=== PATIENT | female | born 1935 | race Caucasian/White ===

== ENCOUNTER 2019-04-23 04:02 | Observation (INO) | payer MEDICARE, BC ==
[2019-04-23] MEDS ORDERED: Ondansetron 4 MG/2 ML SDV IVPUSH ONE (04:17)
[2019-04-23] MEDS ORDERED: Diphtheria/Tetanus Toxoids,Adult (Td) 0.5 ML Syringe IM ONE (04:19)
--- NOTE | 2019-04-23 04:33 | EDM.PDOC ---
ED HPI GENERAL MEDICAL PROBLEM - General Chief Complaint: General Stated Complaint: HEAD WOUND Time Seen by Provider: 04/23/19 04:11 - History of Present Illness INITIAL COMMENTS - FREE TEXT/NARRATIVE: HISTORY AND PHYSICAL: History of present illness: Patient is an 83-year-old female with extensive past medical history including coronary artery disease with stent placement who presents status post fall in which she struck her head sustaining a facial laceration patient states she recently been suffering from nausea vomiting and diarrhea and got up to go to the bathroom and felt weak and dizzy and sustained a fall there was no loss consciousness she denies neck pain denies chest or abdominal pain or trauma and states she actually feels better since arrival her tetanus status is not up-to- date. Review of systems: As per history of present illness and below otherwise all systems reviewed and negative. Past medical history: As per history of present illness and as reviewed below otherwise noncontributory. Surgical history: As per history of present illness and as reviewed below otherwise noncontributory. Social history: No reported history of drug or alcohol abuse. Family history: As per history of present illness and as reviewed below otherwise noncontributory. Physical exam: HEENT: Patient has 2 facial lacerations noted to her left forearm there are total of 4 cm in length , normocephalic, pupils reactive, negative for conjunctival pallor or scleral icterus, mucous membranes moist, throat clear, neck supple, nontender, trachea midline. Lungs: Clear to auscultation, breath sounds equal bilaterally, chest nontender. Heart: S1S2, irregular, negative for clicks, rubs, or JVD. Abdomen: Soft, nondistended, nontender. Negative for masses or hepatosplenomegaly. Negative for costovertebral tenderness. Pelvis: Stable nontender. Genitourinary: Deferred. Rectal: Deferred. Extremities: Atraumatic, negative for cords or calf pain. Neurovascular unremarkable. Neuro: Awake, alert, oriented. Cranial nerves II through XII unremarkable. Cerebellum unremarkable. Motor and sensory unremarkable throughout. Exam nonfocal. Diagnostics: CBC CMP troponin PT/INR lipase UA acute abdominal series with chest x-ray EKG CT brain Therapeutics: Saline 1 L bolus phototypesetting equipment monitor patient's wound was irrigated with copious amount 0.9 normal saline she was prepped and draped in a sterile manner Neste size of 1% lidocaine without epinephrine and closed with 5-0 absorbable suture bacitracin was applied Impression: #1 gastroenteritis #2 fall with head injury/facial lacerations #3 history of coronary artery disease #4 history of hypertension Definitive disposition and diagnosis as appropriate pending reevaluation and review of above. forehead Pain Score (Numeric/FACES): 5 - Related Data Allergies Allergy/AdvReac Type Severity Reaction Status Date / Time No Known Allergies Allergy Verified 04/23/19 04:11 Home Meds: Home Meds Lisinopril 20 mg PO BID 10/04/13 [History] Metoprolol Succinate 25 mg PO BEDTIME #30 tab.sr.24h 10/06/13 [Rx] hydroCHLOROthiazide [Hydrochlorothiazide] 25 mg PO DAILY #30 tablet 10/06/13 [Rx ] amLODIPine [Norvasc] 2.5 mg PO DAILY 10/07/15 [History] atorvaSTATin [Lipitor] 20 mg PO DAILY 04/23/19 [History] Past Medical History HEENT History: Reports: Cataract, Impaired Vision Cardiovascular History: Reports: High Cholesterol, Hypertension, Stents, Other ( See Below) Other Cardiovascular History: Heart Attack Respiratory History: Reports: None Gastrointestinal History: Reports: GERD Genitourinary History: Reports: None Other Genitourinary History: kidney surgery done (2 weeks ago)(herlinda) [employer] History: Reports: Musculoskeletal History: Reports: None Neurological History: Reports: None Psychiatric History: Reports: None Endocrine/Metabolic History: Reports: None Insulin Pump Model and Digital Developer: None Hematologic History: Reports: None Immunologic History: Reports: None Oncologic (Cancer) History: Reports: None Dermatologic History: Reports: None - Infectious Disease History Infectious Disease History: Reports: None - Past Surgical History Head Surgeries/Procedures: Reports: None HEENT Surgical History: Reports: Cataract Surgery Cardiovascular Surgical History: Reports: Coronary Artery Stent Other Female Surgeries/Procedures: Kidney Stent Social & Family History - Family History Family Medical History: Noncontributory - Tobacco Use Smoking Status *Q: Never Smoker - Caffeine Use Caffeine Use: Reports: None - Recreational Drug Use Recreational Drug Use: No ED ROS GENERAL - Review of Systems Review Of Systems: Comprehensive ROS is negative, except as noted in HPI. ED EXAM, GENERAL - Physical Exam Exam: See Below (see dictation) Course - Vital Signs Last Recorded V/S: Last Vital Signs Temp 36.9 C 04/23/19 04:05 Pulse 75 04/23/19 04:05 Resp 20 04/23/19 04:05 BP 131/80 04/23/19 04:05 Pulse Ox 93 L 04/23/19 04:05 - Orders/Labs/Meds Orders: Active Orders 24 hr Category Date Time Status EKG Documentation Completion [RC] STAT Care 04/23/19 04:17 Active Vaccines to be Administered [RC] PER UNIT ROUTINE Care 04/23/19 04:19 Active UA W/MICROSCOPIC [URIN] Stat Lab 04/23/19 04:17 Ordered Labs: Laboratory Tests 04/23/19 04/23/19 04/23/19 Range/Units 04:10 04:10 04:10 WBC 11.37 H (4.0-11.0) K/uL RBC 5.23 (4.30-5.90) M/uL Hgb 15.5 (12.0-16.0) g/dL Hct 45.9 (36.0-46.0) % MCV 87.8 (80.0-98.0) fL MCH 29.6 (27.0-32.0) pg MCHC 33.8 (31.0-37.0) g/dL RDW Std Deviation 45.2 (28.0-62.0) fl RDW Coeff of Silver 14 (11.0-15.0) % Plt Count 232 (150-400) K/uL MPV 10.60 (7.40-12.00) fL Neut % (Auto) 89.3 H (48.0-80.0) % Lymph % (Auto) 3.7 L (16.0-40.0) % [place] % (Auto) 5.6 (0.0-15.0) % Eos % (Auto) 1.3 (0.0-7.0) % Baso % (Auto) 0.1 (0.0-1.5) % Neut # (Auto) 10.2 H (1.4-5.7) K/uL Lymph # (Auto) 0.4 L (0.6-2.4) K/uL [place] # (Auto) 0.6 (0.0-0.8) K/uL Eos # (Auto) 0.2 (0.0-0.7) K/uL Baso # (Auto) 0.0 (0.0-0.1) K/uL Nucleated RBC % 0.0 /100WBC Nucleated RBCs # 0 K/uL INR 1.00 Sodium 138 (136-145) mmol/L Potassium 3.6 (3.5-5.1) mmol/L Chloride 99 (98-107) mmol/L Carbon Dioxide 27.7 (21.0-32.0) mmol/L BUN 35 H (7.0-18.0) mg/dL Creatinine 1.6 H (0.6-1.0) mg/dL Est Cr Clr Drug Dosing 19.40 mL/min Estimated GFR (MDRD) 30.6 ml/min Glucose 167 H (74-106) mg/dL POC Glucose (60-110) mg/dL Calcium 9.6 (8.5-10.1) mg/dL Total Bilirubin 1.0 (0.2-1.0) mg/dL AST 31 (15-37) IU/L ALT 29 (14-63) IU/L Alkaline Phosphatase 109 (46-116) U/L Total Protein 8.5 H (6.4-8.2) g/dL Albumin 4.6 (3.4-5.0) g/dL Globulin 3.9 (2.6-4.0) g/dL Albumin/Globulin Ratio 1.2 (0.9-1.6) Lipase 252 (73-393) U/L 04/23/19 Range/Units 04:17 WBC (4.0-11.0) K/uL RBC (4.30-5.90) M/uL Hgb (12.0-16.0) g/dL Hct (36.0-46.0) % MCV (80.0-98.0) fL MCH (27.0-32.0) pg MCHC (31.0-37.0) g/dL RDW Std Deviation (28.0-62.0) fl RDW Coeff of Silver (11.0-15.0) % Plt Count (150-400) K/uL MPV (7.40-12.00) fL Neut % (Auto) (48.0-80.0) % Lymph % (Auto) (16.0-40.0) % [place] % (Auto) (0.0-15.0) % Eos % (Auto) (0.0-7.0) % Baso % (Auto) (0.0-1.5) % Neut # (Auto) (1.4-5.7) K/uL Lymph # (Auto) (0.6-2.4) K/uL [place] # (Auto) (0.0-0.8) K/uL Eos # (Auto) (0.0-0.7) K/uL Baso # (Auto) (0.0-0.1) K/uL Nucleated RBC % /100WBC Nucleated RBCs # K/uL INR Sodium (136-145) mmol/L Potassium (3.5-5.1) mmol/L Chloride (98-107) mmol/L Carbon Dioxide (21.0-32.0) mmol/L BUN (7.0-18.0) mg/dL Creatinine (0.6-1.0) mg/dL Est Cr Clr Drug Dosing mL/min Estimated GFR (MDRD) ml/min Glucose (74-106) mg/dL POC Glucose 160 H (60-110) mg/dL Calcium (8.5-10.1) mg/dL Total Bilirubin (0.2-1.0) mg/dL AST (15-37) IU/L ALT (14-63) IU/L Alkaline Phosphatase (46-116) U/L Total Protein (6.4-8.2) g/dL Albumin (3.4-5.0) g/dL Globulin (2.6-4.0) g/dL Albumin/Globulin Ratio (0.9-1.6) Lipase (73-393) U/L Meds: Medications Discontinued Medications Generic Name Dose Route Start Last Admin Trade Name Freq PRN Reason Stop Dose Admin Sodium Chloride 1,000 mls @ 999 mls/hr 04/23/19 04:35 04/23/19 04:36 Normal Saline IV 04/23/19 05:35 999 mls/hr .Bolus ONE Administration Lidocaine HCl 5 ml 04/23/19 05:00 04/23/19 05:14 Xylocaine-Mpf 1% INJECT 04/23/19 05:01 5 ml ONETIME ONE Administration Ondansetron HCl 4 mg 04/23/19 04:17 04/23/19 04:36 Zofran IVPUSH 04/23/19 04:18 4 mg ONETIME ONE Administration Tetanus/Diphtheria Toxoids 0.5 ml 04/23/19 04:19 04/23/19 04:36 Tenivac IM 04/23/19 04:20 0.5 ml .ONCE ONE Administration Departure - Departure Time of Disposition: 05:49 Disposition: Refer to Observation Condition: Good Clinical Impression: Gastroenteritis, Coronary arteriosclerosis, CAD, Dehydration, Syncope, Head injury, Facial laceration - Discharge Information Referrals: PCP,None [Primary Care Provider] - Forms: ED Department Discharge Sepsis Event Note - Evaluation Sepsis Screening Result: No Definite Risk - Focused Exam Vital Signs: Vital Signs Temp Pulse Resp BP Pulse Ox 04/23/19 04:05 36.9 C 75 20 131/80 93 L Date Exam was Performed: 04/23/19 Time Exam was Performed: 05:49 - My Orders Last 24 Hours: My Active Orders 04/23/19 04:17 EKG Documentation Completion [RC] STAT UA W/MICROSCOPIC [URIN] Stat 04/23/19 04:19 Vaccines to be Administered [RC] PER UNIT ROUTINE - Assessment/Plan Last 24 Hours: My Active Orders 04/23/19 04:17 EKG Documentation Completion [RC] STAT UA W/MICROSCOPIC [URIN] Stat 04/23/19 04:19 Vaccines to be Administered [RC] PER UNIT ROUTINE
[2019-04-23] MEDS ORDERED: Sodium Chloride 0.9% 1,000 ML IV ONE (04:35)
[2019-04-23 04:46] LABS: CARBON DIOXIDE,CO2 27.7 mmol/L (21.0-32.0); POTASSIUM,K 3.6 mmol/L (3.5-5.1)
--- NOTE | 2019-04-23 05:29 | CR ---
Indication: Pain after fall Technique: Abdomen 2 view and chest x-ray Comparison: None Findings/Impression: Single view of the chest shows no pleural effusion or pneumothorax. No focal consolidation. Normal heart size. No dilated loops of large or small intestine. Right upper quadrant surgical clips. No abnormal calcifications. Dictated by Rober Martinez MD @ Apr 23 2019 5:19AM Signed by Dr. Rober Martinez @ Apr 23 2019 5:28AM
--- NOTE | 2019-04-23 05:34 | CT ---
INDICATION: Pain, fall and dizziness. TECHNIQUE: CT head without contrast. COMPARISON: None. FINDINGS: CSF spaces: Ventricles upper normal size. Brain parenchyma: Minimal cerebral atrophy with focal encephalomalacia in left frontal lobe consistent with an old infarction. No intracranial bleed or mass effect. Skull base and calvarium: The visualized paranasal sinuses and mastoid air cells demonstrate no acute or significant findings. The visualized orbits are grossly unremarkable. No skull fractures. Left frontal scalp hematoma. Atherosclerosis. IMPRESSION: 1. Left frontal scalp hematoma without calvarial fracture or intracranial bleed. 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 Please note that all CT scans at this facility use dose modulation, iterative reconstruction, and/or weight-based dosing when appropriate to reduce radiation dose to as low as reasonably achievable. Dictated by Rober Martinez MD @ Apr 23 2019 5:19AM Signed by Dr. Rober Martinez @ Apr 23 2019 5:32AM
[2019-04-23] MEDS: Lactated Ringers 1,000 ML IV SCH ×3 (07:58→23:19)
[2019-04-23] MEDS ORDERED: Acetaminophen 325 MG Tab PO PRN (08:24)
[2019-04-23] MEDS ORDERED: Ondansetron 4 MG/2 ML SDV IVPUSH PRN (08:24)
--- NOTE | 2019-04-23 08:31 | PCM.HP.2 ---
<Piedad Adhikari - Last Filed: 04/23/19 10:41> H&P History of Present Illness - General Date of Service: 04/23/19 Admit Problem/Dx: Admission Diagnosis/Problem Admission Diagnosis/Problem Syncope - History of Present Illness Initial Comments - Free Text/Narative: The patient is a 83 year old female with PMH of CAD with stents, HTN, hyperlipidemia who presented to the ER after fall and head trauma. Reports she ate her casserole at 4 pm then within 2 hours developed nausea, vomiting and diarrhea. Thought she had food poisoning. Was going to the bathroom when she suddenly felt very dizzy and weak. She then fell and hit the front of her head above left eye. She states she isn't sure if she passed out then fell or lost consciousness after the head trauma. She reports her son said she didn't pass out or lose consciousness. Denied chest pain, shortness of breath before incident. Denies fever/chills, black/bloody stools, or recent antibiotic use. This morning she states her head feels a little foggy, her abdomen is crampy but no longer nauseous or having diarrhea. In the ER, work up showed white count of 11.3, no anemia, elevated BUN/Cr, glucose of 160, lipase of 252. She was negative for influenza. Abdomen/chest x -ray showed no acute process. 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 She was given Zofran and IVF in the ER. PCP- Dr. Jaimes forehead Pain Score (Numeric/FACES): 5 - Related Data Allergies/Adverse Reactions: Allergies Allergy/AdvReac Type Severity Reaction Status Date / Time No Known Allergies Allergy Verified 04/23/19 11:02 Home Medications: Home Meds Metoprolol Succinate 25 mg PO BEDTIME 04/23/19 [History] atorvaSTATin [Lipitor] 20 mg PO DAILY 04/23/19 [History] estradioL [Estrace 0.01% Vaginal Crm] 1 applic VAG BEDTIME 04/23/19 [History] Acetaminophen [Tylenol] 650 mg PO Q4H PRN #10 tablet 04/24/19 [Rx] Past Medical History HEENT History: Reports: Cataract, Impaired Vision Cardiovascular History: Reports: High Cholesterol, Hypertension, Stents, Other ( See Below) Other Cardiovascular History: Heart Attack Respiratory History: Reports: None Gastrointestinal History: Reports: GERD Genitourinary History: Reports: None Other Genitourinary History: kidney surgery done (2 weeks ago)(herlinda) BUSINESS ASSOCIATE History: Reports: Musculoskeletal History: Reports: None Neurological History: Reports: None Psychiatric History: Reports: None Endocrine/Metabolic History: Reports: None Insulin Pump Model and Application Dba: None Hematologic History: Reports: None Immunologic History: Reports: None Oncologic (Cancer) History: Reports: None Dermatologic History: Reports: None - Infectious Disease History Infectious Disease History: Reports: None - Past Surgical History Head Surgeries/Procedures: Reports: None HEENT Surgical History: Reports: Cataract Surgery Cardiovascular Surgical History: Reports: Coronary Artery Stent Other Female Surgeries/Procedures: Kidney Stent Social & Family History - Family History Family Medical History: Noncontributory - Tobacco Use Smoking Status *Q: Former Smoker Years of Tobacco use: 5 Used Tobacco, but Quit: Yes Month/Year Tobacco Last Used: 40 years ago Second Hand Smoke Exposure: No - Caffeine Use Caffeine Use: Reports: None - Recreational Drug Use Recreational Drug Use: No H&P Review of Systems - Review of Systems: Review Of Systems: See Below General: Reports: No Symptoms HEENT: Reports: No Symptoms Pulmonary: Reports: No Symptoms Cardiovascular: Reports: No Symptoms Gastrointestinal: Reports: Abdominal Pain, Diarrhea, Nausea, Vomiting. Denies: Black Stool, Bloody Stool Genitourinary: Reports: No Symptoms Musculoskeletal: Reports: No Symptoms Skin: Reports: No Symptoms Psychiatric: Reports: No Symptoms Neurological: Reports: Syncope Hematologic/Lymphatic: Reports: No Symptoms Immunologic: Reports: No Symptoms Exam - Exam Exam: See Below - Vital Signs Vital Signs: Last Vital Signs Temp 99.2 F 04/23/19 06:46 Pulse 74 04/23/19 06:46 Resp 18 04/23/19 06:46 BP 148/66 H 04/23/19 06:46 Pulse Ox 95 04/23/19 06:46 Weight: 56.699 kg - Exam Quality Assessment: No: Supplemental Oxygen General: Alert, Oriented, Cooperative HEENT: Conjunctiva Clear, EOMI, Mucosa Moist & [place], Posterior Pharynx Clear, Pupils Equal, Pupils Reactive, Other (hematoma above left eye) Lungs: Clear to Auscultation, Normal Respiratory Effort Cardiovascular: Regular Rate, Regular Rhythm GI/Abdominal Exam: Normal Bowel Sounds, Soft, Tender. No: Guarding, Rigid, Rebound Extremities: No Pedal Edema Skin: Warm, Dry, Intact Neuro Extensive - Mental Status: Alert, Oriented x3 Psychiatric: Alert, Normal Affect, Normal Mood - Patient Data Lab Results Last 24 hrs: Laboratory Results - last 24 hr 04/23/19 04/23/19 04/23/19 Range/Units 04:10 04:10 04:10 WBC 11.37 H (4.0-11.0) K/uL RBC 5.23 (4.30-5.90) M/uL Hgb 15.5 (12.0-16.0) g/dL Hct 45.9 (36.0-46.0) % MCV 87.8 (80.0-98.0) fL MCH 29.6 (27.0-32.0) pg MCHC 33.8 (31.0-37.0) g/dL RDW Std Deviation 45.2 (28.0-62.0) fl RDW Coeff of Silver 14 (11.0-15.0) % Plt Count 232 (150-400) K/uL MPV 10.60 (7.40-12.00) fL Neut % (Auto) 89.3 H (48.0-80.0) % Lymph % (Auto) 3.7 L (16.0-40.0) % [place] % (Auto) 5.6 (0.0-15.0) % Eos % (Auto) 1.3 (0.0-7.0) % Baso % (Auto) 0.1 (0.0-1.5) % Neut # (Auto) 10.2 H (1.4-5.7) K/uL Lymph # (Auto) 0.4 L (0.6-2.4) K/uL [place] # (Auto) 0.6 (0.0-0.8) K/uL Eos # (Auto) 0.2 (0.0-0.7) K/uL Baso # (Auto) 0.0 (0.0-0.1) K/uL Nucleated RBC % 0.0 /100WBC Nucleated RBCs # 0 K/uL INR 1.00 Sodium 138 (136-145) mmol/L Potassium 3.6 (3.5-5.1) mmol/L Chloride 99 (98-107) mmol/L Carbon Dioxide 27.7 (21.0-32.0) mmol/L BUN 35 H (7.0-18.0) mg/dL Creatinine 1.6 H (0.6-1.0) mg/dL Est Cr Clr Drug Dosing 19.40 mL/min Estimated GFR (MDRD) 30.6 ml/min Glucose 167 H (74-106) mg/dL POC Glucose (60-110) mg/dL Calcium 9.6 (8.5-10.1) mg/dL Total Bilirubin 1.0 (0.2-1.0) mg/dL AST 31 (15-37) IU/L ALT 29 (14-63) IU/L Alkaline Phosphatase 109 (46-116) U/L Total Protein 8.5 H (6.4-8.2) g/dL Albumin 4.6 (3.4-5.0) g/dL Globulin 3.9 (2.6-4.0) g/dL Albumin/Globulin Ratio 1.2 (0.9-1.6) Lipase 252 (73-393) U/L 04/23/19 Range/Units 04:17 WBC (4.0-11.0) K/uL RBC (4.30-5.90) M/uL Hgb (12.0-16.0) g/dL Hct (36.0-46.0) % MCV (80.0-98.0) fL MCH (27.0-32.0) pg MCHC (31.0-37.0) g/dL RDW Std Deviation (28.0-62.0) fl RDW Coeff of Silver (11.0-15.0) % Plt Count (150-400) K/uL MPV (7.40-12.00) fL Neut % (Auto) (48.0-80.0) % Lymph % (Auto) (16.0-40.0) % [place] % (Auto) (0.0-15.0) % Eos % (Auto) (0.0-7.0) % Baso % (Auto) (0.0-1.5) % Neut # (Auto) (1.4-5.7) K/uL Lymph # (Auto) (0.6-2.4) K/uL [place] # (Auto) (0.0-0.8) K/uL Eos # (Auto) (0.0-0.7) K/uL Baso # (Auto) (0.0-0.1) K/uL Nucleated RBC % /100WBC Nucleated RBCs # K/uL INR Sodium (136-145) mmol/L Potassium (3.5-5.1) mmol/L Chloride (98-107) mmol/L Carbon Dioxide (21.0-32.0) mmol/L BUN (7.0-18.0) mg/dL Creatinine (0.6-1.0) mg/dL Est Cr Clr Drug Dosing mL/min Estimated GFR (MDRD) ml/min Glucose (74-106) mg/dL POC Glucose 160 H (60-110) mg/dL Calcium (8.5-10.1) mg/dL Total Bilirubin (0.2-1.0) mg/dL AST (15-37) IU/L ALT (14-63) IU/L Alkaline Phosphatase (46-116) U/L Total Protein (6.4-8.2) g/dL Albumin (3.4-5.0) g/dL Globulin (2.6-4.0) g/dL Albumin/Globulin Ratio (0.9-1.6) Lipase (73-393) U/L Result Diagrams: 04/23/19 04:10 04/23/19 04:10 Rogerio Results Last 24 hrs: Microbiology 04/23/19 04:18 Influenza Type A Antigen Screen - Final Nasopharyngeal Swab NEGATIVE INFLUENZA A VIRUS AG REFERENCE RANGE: NEGATIVE Influenza Type B Antigen Screen - Final NEGATIVE INFLUENZA B VIRUS AG REFERENCE RANGE: NEGATIVE Sepsis Event Note - Evaluation Sepsis Screening Result: No Definite Risk - Focused Exam Vital Signs: Vital Signs Temp Pulse Resp BP Pulse Ox 04/23/19 06:46 99.2 F 74 18 148/66 H 95 04/23/19 06:16 98 F 72 18 156/52 H 94 L 04/23/19 05:00 70 18 153/87 H 94 L 04/23/19 04:05 98.5 F 75 20 131/80 93 L Date Exam was Performed: 04/23/19 Time Exam was Performed: 10:41 Problem List Initiated/Reviewed/Updated: Yes Orders Last 24hrs: Active Orders 24 hr Category Date Time Status Patient Status [ADT] Stat ADT 04/23/19 05:53 Active Intake and Output [RC] ASDIRECTED Care 04/23/19 08:22 Ordered Neuro Check [RC] Q4HR Care 04/23/19 08:00 Active Telemetry Monitoring [Cardiac Monitoring] [RC] . Care 04/23/19 06:12 Active DIRECTED Vaccines to be Administered [RC] PER UNIT ROUTINE Care 04/23/19 04:19 Active Vital Signs [RC] Q4H Care 04/23/19 07:11 Active Heart Healthy Diet [DIET] Diet 04/23/19 Breakfast Active C DIFFICILE AG/TOXIN W/REFLEX [RM] Routine Lab 04/23/19 07:46 Ordered UA W/MICROSCOPIC [URIN] Stat Lab 04/23/19 04:17 Ordered Acetaminophen [Tylenol] Med 04/23/19 08:24 Ordered 650 mg PO Q4H PRN Lactated Ringers [Ringers, Lactated] 1,000 ml Med 04/23/19 07:15 Active IV ASDIRECTED Ondansetron [Zofran] Med 04/23/19 08:24 Ordered 4 mg IVPUSH Q4H PRN Resuscitation Status Routine Resus Stat 04/23/19 08:22 Ordered Medication Orders Acetaminophen (Tylenol) 650 mg PO Q4H PRN PRN Reason: Pain/Fever Lactated Ringer's (Ringers, Lactated) 1,000 mls @ 150 mls/hr IV ASDIRECTED [facility] Last Admin: 04/23/19 07:58 Dose: 150 mls/hr Ondansetron HCl (Zofran) 4 mg IVPUSH Q4H PRN PRN Reason: Nausea/Vomiting Assessment/Plan Comment:: 1. Admit for observation 2. Code status- DNR/DNI 3. Vitals per routine 4. I/Os per routine 5. Diet- clear liquid 6. DVT prophylaxis with heparin 7. Possible syncope with fall and head trauma- neuro checks, monitor on telemetry, CT head negative acute intracranial process. 8. Vomiting and Diarrhea- clear liquid diet as tolerated, IVF, Cdiff/Stool studies and UA pending. 9.CKD- monitor 10. CAD, HTN, hyperlipidemia- will resume metoprolol and see how her blood pressure runs, continue statin. <Sarina Scott - Last Filed: 04/24/19 13:54> H&P History of Present Illness - General Admit Problem/Dx: Admission Diagnosis/Problem Admission Diagnosis/Problem Syncope Exam - Vital Signs Vital Signs: Last Vital Signs Temp 36.4 C 04/24/19 12:00 Pulse 82 04/24/19 12:00 Resp 16 04/24/19 12:00 BP 170/91 H 04/24/19 12:00 Pulse Ox 99 04/24/19 12:00 Orthostatic Blood Pressure [ 110/56 Standing] Orthostatic Blood Pressure [ 104/57 Sitting] - Patient Data Lab Results Last 24 hrs: Laboratory Results - last 24 hr 04/23/19 04/23/19 04/24/19 Range/Units 04:10 18:35 06:00 WBC (4.0-11.0) K/uL RBC (4.30-5.90) M/uL Hgb (12.0-16.0) g/dL Hct (36.0-46.0) % MCV (80.0-98.0) fL MCH (27.0-32.0) pg MCHC (31.0-37.0) g/dL RDW Std Deviation (28.0-62.0) fl RDW Coeff of Silver (11.0-15.0) % Plt Count (150-400) K/uL MPV (7.40-12.00) fL Neut % (Auto) (48.0-80.0) % Lymph % (Auto) (16.0-40.0) % Cris[place] % (Auto) (0.0-15.0) % Eos % (Auto) (0.0-7.0) % Baso % (Auto) (0.0-1.5) % Neut # (Auto) (1.4-5.7) K/uL Lymph # (Auto) (0.6-2.4) K/uL [place] # (Auto) (0.0-0.8) K/uL Eos # (Auto) (0.0-0.7) K/uL Baso # (Auto) (0.0-0.1) K/uL Nucleated RBC % /100WBC Nucleated RBCs # K/uL Sodium (136-145) mmol/L Potassium (3.5-5.1) mmol/L Chloride (98-107) mmol/L Carbon Dioxide (21.0-32.0) mmol/L BUN (7.0-18.0) mg/dL Creatinine (0.6-1.0) mg/dL Est Cr Clr Drug Dosing mL/min Estimated GFR (MDRD) ml/min Glucose (74-106) mg/dL Calcium (8.5-10.1) mg/dL Phosphorus 2.4 L (2.6-4.7) mg/dL Magnesium 1.8 2.2 (1.8-2.4) mg/dL Urine Color YELLOW Urine Appearance CLEAR Urine pH 5.5 (5.0-8.0) Ur Specific [place] 1.020 (1.001-1.035) Urine Protein NEGATIVE (NEGATIVE) mg/dL Urine Glucose (UA) NEGATIVE (NEGATIVE) mg/dL Urine Ketones NEGATIVE (NEGATIVE) mg/dL Urine Occult Blood TRACE-INTACT H (NEGATIVE) Urine Nitrite NEGATIVE (NEGATIVE) Urine Bilirubin NEGATIVE (NEGATIVE) Urine Urobilinogen 0.2 (<2.0) EU/dL Ur Leukocyte Esterase NEGATIVE (NEGATIVE) Urine RBC 0-1 (0-2/HPF) Urine WBC 0-1 (0-5/HPF) Ur Epithelial Cells RARE (NONE-FEW) Urine Bacteria RARE (NEGATIVE) 04/24/19 04/24/19 Range/Units 06:20 06:20 WBC 5.71 (4.0-11.0) K/uL RBC 4.07 L (4.30-5.90) M/uL Hgb 11.8 L (12.0-16.0) g/dL Hct 35.7 L (36.0-46.0) % MCV 87.7 (80.0-98.0) fL MCH 29.0 (27.0-32.0) pg MCHC 33.1 (31.0-37.0) g/dL RDW Std Deviation 45.6 (28.0-62.0) fl RDW Coeff of Silver 14 (11.0-15.0) % Plt Count 182 (150-400) K/uL MPV 11.00 (7.40-12.00) fL Neut % (Auto) 70.1 (48.0-80.0) % Lymph % (Auto) 18.9 (16.0-40.0) % Cris[place] % (Auto) 7.4 (0.0-15.0) % Eos % (Auto) 3.2 (0.0-7.0) % Baso % (Auto) 0.4 (0.0-1.5) % Neut # (Auto) 4.0 (1.4-5.7) K/uL Lymph # (Auto) 1.1 (0.6-2.4) K/uL [place] # (Auto) 0.4 (0.0-0.8) K/uL Eos # (Auto) 0.2 (0.0-0.7) K/uL Baso # (Auto) 0.0 (0.0-0.1) K/uL Nucleated RBC % 0.0 /100WBC Nucleated RBCs # 0 K/uL Sodium 139 (136-145) mmol/L Potassium 3.4 L (3.5-5.1) mmol/L Chloride 103 (98-107) mmol/L Carbon Dioxide 30.8 (21.0-32.0) mmol/L BUN 24 H (7.0-18.0) mg/dL Creatinine 1.3 H (0.6-1.0) mg/dL Est Cr Clr Drug Dosing 23.87 mL/min Estimated GFR (MDRD) 38.9 ml/min Glucose 91 (74-106) mg/dL Calcium 8.3 L (8.5-10.1) mg/dL Phosphorus (2.6-4.7) mg/dL Magnesium (1.8-2.4) mg/dL Urine Color Urine Appearance Urine pH (5.0-8.0) Ur Specific [place] (1.001-1.035) Urine Protein (NEGATIVE) mg/dL Urine Glucose (UA) (NEGATIVE) mg/dL Urine Ketones (NEGATIVE) mg/dL Urine Occult Blood (NEGATIVE) Urine Nitrite (NEGATIVE) Urine Bilirubin (NEGATIVE) Urine Urobilinogen (<2.0) EU/dL Ur Leukocyte Esterase (NEGATIVE) Urine RBC (0-2/HPF) Urine WBC (0-5/HPF) Ur Epithelial Cells (NONE-FEW) Urine Bacteria (NEGATIVE) Result Diagrams: 04/24/19 06:20 04/24/19 06:20 Sepsis Event Note - Focused Exam Vital Signs: Vital Signs Temp Pulse Resp BP Pulse Ox 04/24/19 12:00 36.4 C 82 16 170/91 H 99 04/24/19 08:00 36.5 C 59 L 15 120/62 98 04/24/19 04:00 36.2 C 55 L 16 135/61 95 Date Exam was Performed: 04/24/19 Time Exam was Performed: 13:54 - Problem List (1) Coronary arteriosclerosis, CAD SNOMED Code(s): 75666389 ICD Code: I25.10 - ATHSCL HEART DISEASE OF [place] CORONARY ARTERY W/O ANG PCTRS Status: Acute Current Visit: Yes (2) Dehydration SNOMED Code(s): 55360092 ICD Code: E86.0 - DEHYDRATION Status: Acute Current Visit: Yes (3) Facial laceration SNOMED Code(s): 760736799 ICD Code: S01.81XA - LACERATION W/O FOREIGN BODY OF OTH PART OF HEAD, INIT ENCNTR Status: Acute Current Visit: Yes (4) Gastroenteritis SNOMED Code(s): 27355682 ICD Code: K52.9 - NONINFECTIVE GASTROENTERITIS AND COLITIS, UNSPECIFIED Status: Acute Current Visit: Yes (5) Syncope SNOMED Code(s): 258752051 ICD Code: R55 - SYNCOPE AND COLLAPSE Status: Acute Current Visit: Yes Orders Last 24hrs: Active Orders 24 hr Category Date Time Status Regular Diet [DIET] Diet 04/24/19 Lunch Active Echo Comp wo Cont [US] Routine Exams 04/23/19 23:10 Ordered Metoprolol Succinate [Toprol XL] Med 04/23/19 21:00 Active 25 mg PO BEDTIME atorvaSTATin [Lipitor] Med 04/24/19 09:00 Active 20 mg PO DAILY Medication Orders Acetaminophen (Tylenol) 650 mg PO Q4H PRN PRN Reason: Pain/Fever Atorvastatin Calcium (Lipitor) 20 mg PO DAILY [facility] Last Admin: 04/24/19 08:50 Dose: 20 mg Heparin Sodium (Porcine) (Heparin Sodium) 5,000 units SUBCUT BID [facility] Last Admin: 04/24/19 08:52 Dose: 5,000 units Admin: 04/23/19 21:19 Dose: 5,000 units Admin: 04/23/19 11:23 Dose: 5,000 units Lactated Ringer's (Ringers, Lactated) 1,000 mls @ 150 mls/hr IV ASDIRECTED [facility] Last Admin: 04/24/19 08:54 Dose: 150 mls/hr Infusion: 04/24/19 06:00 Dose: 150 mls/hr Admin: 04/23/19 23:19 Dose: 150 mls/hr Infusion: 04/23/19 22:22 Dose: 150 mls/hr Admin: 04/23/19 15:41 Dose: 150 mls/hr Infusion: 04/23/19 14:39 Dose: 150 mls/hr Admin: 04/23/19 07:58 Dose: 150 mls/hr Metoprolol Succinate (Toprol Xl) 25 mg PO BEDTIME [facility] Last Admin: 04/23/19 21:22 Dose: Ondansetron HCl (Zofran) 4 mg IVPUSH Q4H PRN PRN Reason: Nausea/Vomiting Assessment/Plan Comment:: I performed a history and physical exam of the patient and discussed management with resident. I have reviewed the residents note and agree with documented findings and plan unless otherwise specified in my note.
[2019-04-23] MEDS: Heparin Sodium 5,000 Units/ML Vial SUBCUT SCH ×2 (11:23→21:19)
[2019-04-23] MEDS ORDERED: Metoprolol Succinate 25 MG Tab.ER PO SCH (21:00)
[2019-04-23] MEDS ORDERED: Magnesium Sulfate/Water 2 GM in Premix Bag 1 BAG IV ONE (23:07)
[2019-04-24 06:57] LABS: CARBON DIOXIDE,CO2 30.8 mmol/L (21.0-32.0); POTASSIUM,K 3.4 mmol/L (3.5-5.1)
[2019-04-24] MEDS: Heparin Sodium 5,000 Units/ML Vial SUBCUT SCH (08:52)
[2019-04-24] MEDS: Lactated Ringers 1,000 ML IV SCH (08:54)
[2019-04-24] MEDS ORDERED: atorvaSTATin 20 MG Tab PO SCH (09:00)
[2019-04-24] MEDS ORDERED: Potassium Chloride 10% 20 MEQ/15 ML Soln 30 ML UD Cup PO ONE (09:46)
[2019-04-24] MEDS ORDERED: Phosphorus #1 250 MG Tab PO ONE (12:27)
--- NOTE | 2019-04-24 12:27 | PCM.DCSUM1 ---
Discharge Summary - Hospital Course HPI Initial Comments: Patient is an 83-year-old female with extensive past medical history including coronary artery disease with stent placement who presents status post fall in which she struck her head sustaining a facial laceration patient states she recently been suffering from nausea vomiting and diarrhea and got up to go to the bathroom and felt weak and dizzy and sustained a fall there was no loss consciousness she denies neck pain denies chest or abdominal pain or trauma and states she actually feels better since arrival . She was admitted for further management. no c/o chest pain, Overnight her BP was soft so she received IVF hydration, BP improved, Patients Antihypertensive meds were held , electrolytes were repleted, upon dc only metoprolol was restated, Patients dizzienss was likely sec to taking too many antihypertensives and volume depletion due to diarrhea. Diarrhea improved, BP was stable, and patient was asked to fu with her PCP and check her BP in 2 days to make sure its stable. Patient is medically stable for dc and recommended to fu with PCP upon dc. - Discharge Data Discharge Date: 04/24/19 Discharge Disposition: Home, Self-Care 01 Condition: Fair - Referral to Home Health Primary Care Physician: PCP None - Discharge Diagnosis/Problem(s) (1) Coronary arteriosclerosis, CAD SNOMED Code(s): 27665727 ICD Code: I25.10 - ATHSCL HEART DISEASE OF [place] CORONARY ARTERY W/O ANG PCTRS Status: Acute Current Visit: Yes (2) Dehydration SNOMED Code(s): 39880686 ICD Code: E86.0 - DEHYDRATION Status: Acute Current Visit: Yes (3) Facial laceration SNOMED Code(s): 428540772 ICD Code: S01.81XA - LACERATION W/O FOREIGN BODY OF OTH PART OF HEAD, INIT ENCNTR Status: Acute Current Visit: Yes (4) Gastroenteritis SNOMED Code(s): 06212937 ICD Code: K52.9 - NONINFECTIVE GASTROENTERITIS AND COLITIS, UNSPECIFIED Status: Acute Current Visit: Yes (5) Syncope SNOMED Code(s): 381767388 ICD Code: R55 - SYNCOPE AND COLLAPSE Status: Acute Current Visit: Yes - Discharge Plan *PRESCRIPTION DRUG MONITORING PROGRAM REVIEWED*: No *COPY OF PRESCRIPTION DRUG MONITORING REPORT IN PATIENT BETH: No Prescriptions/Med Rec: Acetaminophen [Tylenol] 650 mg PO Q4H PRN #10 tablet PRN Reason: Pain/Fever Home Medications: Home Meds Metoprolol Succinate 25 mg PO BEDTIME 04/23/19 [History] atorvaSTATin [Lipitor] 20 mg PO DAILY 04/23/19 [History] estradioL [Estrace 0.01% Vaginal Crm] 1 applic VAG BEDTIME 04/23/19 [History] Acetaminophen [Tylenol] 650 mg PO Q4H PRN #10 tablet 04/24/19 [Rx] Referrals: Surendra Jaimes MD [Physician] - 05/06/19 10:30 am (Arrive 15 minutes early with a photo ID and insurance card. ) - Discharge Summary/Plan Comment DC Time >30 min.: No - Patient Data Vitals - Most Recent: Last Vital Signs Temp 36.5 C 04/24/19 08:00 Pulse 59 L 04/24/19 08:00 Resp 15 04/24/19 08:00 BP 120/62 04/24/19 08:00 Pulse Ox 98 04/24/19 08:00 Orthostatic Blood Pressure [ 110/56 Standing] Orthostatic Blood Pressure [ 104/57 Sitting] Weight - Most Recent: 56.699 kg I&O - Last 24 hours: Intake & Output 04/23/19 04/24/19 04/24/19 22:59 06:59 14:59 Intake Total 1529 2150 Output Total 100 500 Balance 1429 1650 Lab Results - Last 24 hrs: Laboratory Results - last 24 hr 04/23/19 04/23/19 04/24/19 Range/Units 04:10 18:35 06:00 WBC (4.0-11.0) K/uL RBC (4.30-5.90) M/uL Hgb (12.0-16.0) g/dL Hct (36.0-46.0) % MCV (80.0-98.0) fL MCH (27.0-32.0) pg MCHC (31.0-37.0) g/dL RDW Std Deviation (28.0-62.0) fl RDW Coeff of Silver (11.0-15.0) % Plt Count (150-400) K/uL MPV (7.40-12.00) fL Neut % (Auto) (48.0-80.0) % Lymph % (Auto) (16.0-40.0) % [place] % (Auto) (0.0-15.0) % Eos % (Auto) (0.0-7.0) % Baso % (Auto) (0.0-1.5) % Neut # (Auto) (1.4-5.7) K/uL Lymph # (Auto) (0.6-2.4) K/uL [place] # (Auto) (0.0-0.8) K/uL Eos # (Auto) (0.0-0.7) K/uL Baso # (Auto) (0.0-0.1) K/uL Nucleated RBC % /100WBC Nucleated RBCs # K/uL Sodium (136-145) mmol/L Potassium (3.5-5.1) mmol/L Chloride (98-107) mmol/L Carbon Dioxide (21.0-32.0) mmol/L BUN (7.0-18.0) mg/dL Creatinine (0.6-1.0) mg/dL Est Cr Clr Drug Dosing mL/min Estimated GFR (MDRD) ml/min Glucose (74-106) mg/dL Calcium (8.5-10.1) mg/dL Phosphorus 2.4 L (2.6-4.7) mg/dL Magnesium 1.8 2.2 (1.8-2.4) mg/dL Urine Color YELLOW Urine Appearance CLEAR Urine pH 5.5 (5.0-8.0) Ur Specific [place] 1.020 (1.001-1.035) Urine Protein NEGATIVE (NEGATIVE) mg/dL Urine Glucose (UA) NEGATIVE (NEGATIVE) mg/dL Urine Ketones NEGATIVE (NEGATIVE) mg/dL Urine Occult Blood TRACE-INTACT H (NEGATIVE) Urine Nitrite NEGATIVE (NEGATIVE) Urine Bilirubin NEGATIVE (NEGATIVE) Urine Urobilinogen 0.2 (<2.0) EU/dL Ur Leukocyte Esterase NEGATIVE (NEGATIVE) Urine RBC 0-1 (0-2/HPF) Urine WBC 0-1 (0-5/HPF) Ur Epithelial Cells RARE (NONE-FEW) Urine Bacteria RARE (NEGATIVE) 04/24/19 04/24/19 Range/Units 06:20 06:20 WBC 5.71 (4.0-11.0) K/uL RBC 4.07 L (4.30-5.90) M/uL Hgb 11.8 L (12.0-16.0) g/dL Hct 35.7 L (36.0-46.0) % MCV 87.7 (80.0-98.0) fL MCH 29.0 (27.0-32.0) pg MCHC 33.1 (31.0-37.0) g/dL RDW Std Deviation 45.6 (28.0-62.0) fl RDW Coeff of Silver 14 (11.0-15.0) % Plt Count 182 (150-400) K/uL MPV 11.00 (7.40-12.00) fL Neut % (Auto) 70.1 (48.0-80.0) % Lymph % (Auto) 18.9 (16.0-40.0) % [place] % (Auto) 7.4 (0.0-15.0) % Eos % (Auto) 3.2 (0.0-7.0) % Baso % (Auto) 0.4 (0.0-1.5) % Neut # (Auto) 4.0 (1.4-5.7) K/uL Lymph # (Auto) 1.1 (0.6-2.4) K/uL [place] # (Auto) 0.4 (0.0-0.8) K/uL Eos # (Auto) 0.2 (0.0-0.7) K/uL Baso # (Auto) 0.0 (0.0-0.1) K/uL Nucleated RBC % 0.0 /100WBC Nucleated RBCs # 0 K/uL Sodium 139 (136-145) mmol/L Potassium 3.4 L (3.5-5.1) mmol/L Chloride 103 (98-107) mmol/L Carbon Dioxide 30.8 (21.0-32.0) mmol/L BUN 24 H (7.0-18.0) mg/dL Creatinine 1.3 H (0.6-1.0) mg/dL Est Cr Clr Drug Dosing 23.87 mL/min Estimated GFR (MDRD) 38.9 ml/min Glucose 91 (74-106) mg/dL Calcium 8.3 L (8.5-10.1) mg/dL Phosphorus (2.6-4.7) mg/dL Magnesium (1.8-2.4) mg/dL Urine Color Urine Appearance Urine pH (5.0-8.0) Ur Specific [place] (1.001-1.035) Urine Protein (NEGATIVE) mg/dL Urine Glucose (UA) (NEGATIVE) mg/dL Urine Ketones (NEGATIVE) mg/dL Urine Occult Blood (NEGATIVE) Urine Nitrite (NEGATIVE) Urine Bilirubin (NEGATIVE) Urine Urobilinogen (<2.0) EU/dL Ur Leukocyte Esterase (NEGATIVE) Urine RBC (0-2/HPF) Urine WBC (0-5/HPF) Ur Epithelial Cells (NONE-FEW) Urine Bacteria (NEGATIVE) Med Orders - Current: Current Medications Acetaminophen (Tylenol) 650 mg PO Q4H PRN PRN Reason: Pain/Fever Atorvastatin Calcium (Lipitor) 20 mg PO DAILY [facility] Last Admin: 04/24/19 08:50 Dose: 20 mg Heparin Sodium (Porcine) (Heparin Sodium) 5,000 units SUBCUT BID [facility] Last Admin: 04/24/19 08:52 Dose: 5,000 units Lactated Ringer's (Ringers, Lactated) 1,000 mls @ 150 mls/hr IV ASDIRECTED [facility] Last Admin: 04/24/19 08:54 Dose: 150 mls/hr Metoprolol Succinate (Toprol Xl) 25 mg PO BEDTIME [facility] Last Admin: 04/23/19 21:22 Dose: Not Given Ondansetron HCl (Zofran) 4 mg IVPUSH Q4H PRN PRN Reason: Nausea/Vomiting Discontinued Medications Sodium Chloride (Normal Saline) 1,000 mls @ 999 mls/hr IV .Bolus ONE Stop: 04/23/19 05:35 Last Admin: 04/23/19 04:36 Dose: 999 mls/hr Magnesium Sulfate 2 gm/ Premix 50 mls @ 50 mls/hr IV ONETIME ONE Stop: 04/24/19 00:06 Last Admin: 04/23/19 23:31 Dose: 50 mls/hr Lidocaine HCl (Xylocaine-Mpf 1%) 5 ml INJECT ONETIME ONE Stop: 04/23/19 05:01 Last Admin: 04/23/19 05:14 Dose: 5 ml Ondansetron HCl (Zofran) 4 mg IVPUSH ONETIME ONE Stop: 04/23/19 04:18 Last Admin: 04/23/19 04:36 Dose: 4 mg Potassium Chloride (Potassium Chloride) 40 meq PO ONETIME ONE Stop: 04/24/19 09:47 Last Admin: 04/24/19 10:35 Dose: 40 meq Tetanus/Diphtheria Toxoids (Tenivac) 0.5 ml IM .ONCE ONE Stop: 04/23/19 04:20 Last Admin: 04/23/19 04:36 Dose: 0.5 ml
[2019-04-24 13:28] VITALS: BP 170/91; PULSE 82
== END 2019-04-24 16:00 | disposition home or self-care (01) ==
LOC: MW.ED 04:02 → MW.MS 05:53
PROVIDERS: ADMIT Student in an Organized Health Care Education/Training Program; ATTEND Student in an Organized Health Care Education/Training Program
DX: R55 Syncope and collapse (principal); E86.0 Dehydration; K52.9 Noninfective gastroenteritis and colitis, unspecified; S01.81XA Laceration without foreign body of other part of head, initial encounter; E78.5 Hyperlipidemia, unspecified; E78.00 Pure hypercholesterolemia, unspecified; K21.9 Gastro-esophageal reflux disease without esophagitis; I12.9 Hypertensive chronic kidney disease with stage 1 through stage 4 chronic kidney disease, or unspecified chronic kidney disease; N18.9 Chronic kidney disease, unspecified; I25.10 Atherosclerotic heart disease of native coronary artery without angina pectoris; Z95.5 Presence of coronary angioplasty implant and graft; Z87.891 Personal history of nicotine dependence; Z79.899 Other long term (current) drug therapy; W18.39XA Other fall on same level, initial encounter
CPT/HCPCS: 36415; 70450; 74022; 80048; 80053; 81001; 82962; 83690; 83735; 84100; 85025; 85610; 87804; 90714; 93005; A9270; J1644; J2001; J2405; J3475; J7030; J7120; 12013; 90471; 96361; 96374; 99283; 99285-25

== ENCOUNTER 2020-04-27 10:14 | Observation (INO) | payer MEDICARE, OTHER ==
--- NOTE | 2020-04-27 10:23 | EDM.PDOC ---
ED HPI GENERAL MEDICAL PROBLEM - General Chief Complaint: Gastrointestinal Problem Stated Complaint: UNK Time Seen by Provider: 04/27/20 10:22 Source of Information: Reports: Patient History Limitations: Reports: No Limitations - History of Present Illness INITIAL COMMENTS - FREE TEXT/NARRATIVE: HISTORY AND PHYSICAL: History of present illness: Patient is an 84-year-old female who presents to the emergency room by EMS after a syncopal event. Patient states she was using the bathroom yesterday and "I guess I fell". She was found on the ground by her son. Fall was unwitnessed, patient does not recall the incident itself. The son states he heard her fall and went upstairs to find her unconscious on the floor, this lasted about a minute. She states she felt generally unwell as she had her second round of the [place] COVID-19 vaccine yesterday. She has had nausea, vomiting, generalized fatigue and malaise since yesterday evening. Today the son states he witnessed seizure like activity that lasted a few seconds along with a syncopal event that lasted less than 30 seconds. That is when he decided to call EMS for assistance. EMS arrived and she was resting in bed, had emesis on herself. EMS states she was complaining of nausea, vomiting and generalized lower abdominal pain. Upon arrival the patient is alert, oriented and states she just generally feels unwell. Currently denies any abdominal pain. EMS had given 4 mg of Zofran and patient states she is starting to feel better with this. Patient denies any fever, chills, headache, change in vision, chest pain, back pain, shortness of breath, cough, or hemoptysis. Denies any diarrhea, constipation or dysuria. Has not noted any blood in urine or stool. Patient has been eating and drinking appropriately. Family states that a year ago she had a similar instance where she had "flulike symptoms" and had similar seizure-like activity. Family reports it took 1 to 2 days for her to bounce back and feel better. Past medical history of coronary artery disease with stents, ID, hypertension, and "kidney surgery". Review of systems: As per history of present illness and below otherwise all systems reviewed and negative. Past medical history: As per history of present illness and as reviewed below otherwise noncontributory. Surgical history: As per history of present illness and as reviewed below otherwise noncontributory. Social history: See social history for further information Family history: As per history of present illness and as reviewed below otherwise noncontributory. Physical exam: General: Well developed and well nourished 84-year-old female. Alert and orientated x 3. Nontoxic in appearance and in no acute distress. Vital signs are stable and have been reviewed by me. Nursing notes were reviewed. HEENT: Atraumatic, normocephalic, pupils equal and reactive bilaterally, negative for conjunctival pallor or scleral icterus, mucous membranes moist, TMs normal bilaterally, throat clear, neck supple, nontender, trachea midline. No drooling or trismus noted. No meningeal signs. No hot potato voice noted. Lungs: Clear to auscultation bilaterally. No wheezes, rales, or rhonchi. Chest nontender. Normal work of breathing, no accessory muscles used. Heart: S1S2, irregular rate and rhythm without overt murmur, gallops, or rubs. No JVD. No peripheral edema Abdomen: Soft, nondistended, nontender. Normoactive bowel sounds. Negative for masses or costovertebral tenderness. C-spine/Back: No pinpoint vertebral tenderness upon palpation. No crepitus, step-offs or obvious deformities. Patient is ambulatory into the emergency room without difficulty or deficit. Able to rock back on heels and walk on toes. Denies any urinary or fecal incontinence. Denies any numbness, tingling or saddle paresthesia. No concerns of serious infection, fracture or cord compression, or cauda equina syndrome. Deep tendon reflexes brisk bilaterally. Skin: Intact, warm, dry. No lesions or rashes noted. Hematologic: No petechiae or purpra. Mucosa appropriate color and normal nail bed color and refill. Extremities: Atraumatic, moves all extremities per self without difficulty or deficits, negative for cords or calf pain. Neurovascular unremarkable. Neuro: Awake, alert, oriented. Cranial nerves II through XII unremarkable. Cerebellum unremarkable. Motor and sensory unremarkable throughout. Exam nonfocal. Psychiatric: Mood and affect are appropriate. Normal thought process. Answering questions appropriately. Notes: *This patient was seen and evaluated during the 2019 SARS-CoV-2 novel coronavirus pandemic period. Community viral transmission is ongoing at time of this encounter and the emergency department is operating under pandemic response procedures. Patient received Zofran via EMS upon arrival. Patient is neurologically intact, she's alert and orientated. Due to the syncopy, LOC and seizure like activity - will do a full work-up with patient is agreeable with. VSS. I have spoke with family of likelyhood of patient being admitted at the least. Lab work shows the patient is mildly dehydrated. Negative troponin. CT is negative for acute traumatic abnormality. Small focus of encephalomalacia in the anterolateral left frontal lobe. Nonspecific cerebral white matter disease which is most likely due to aging/chronic microvascular ischemia. I have talked with the patient family about today's findings, in addition to providing specific details for plan of care. Reassessment at the time of disposition demonstrates that the patient is in no acute distress. Vital signs have been stable while here. Due to patient recent syncopal events and generally feeling unwell keep we will keep her for observation. Dr. Kevin, hospitalist on-call was consulted and he is agreeable to keeping her for further care and management Diagnostics: CBC, CMP, UA, Troponin, EKG, CXR, Head CT UA Therapeutics: IV fluids Impression: Syncope Seizure like activity New onset of atrial fibrillation Fatigue post COVID vaccine Plan: Observation with telemetry Definitive disposition and diagnosis as appropriate pending reevaluation and review of above. rlq Pain Score (Numeric/FACES): 4 - Related Data Allergies Allergy/AdvReac Type Severity Reaction Status Date / Time No Known Allergies Allergy Verified 04/27/20 10:30 Home Meds: Home Meds Metoprolol Succinate 25 mg PO BEDTIME 04/23/19 [History] atorvaSTATin [Lipitor] 20 mg PO DAILY 04/23/19 [History] Acetaminophen [Tylenol] 650 mg PO Q4H PRN #10 tablet 04/24/19 [Rx] Aspirin [Aspirin EC] 81 mg PO DAILY 04/27/20 [History] hydroCHLOROthiazide [Hydrochlorothiazide] 25 mg PO DAILY 04/27/20 [History] lisinopriL [Lisinopril] 20 mg PO DAILY 04/27/20 [History] Past Medical History HEENT History: Reports: Cataract, Impaired Vision Cardiovascular History: Reports: High Cholesterol, Hypertension, Stents, Other (See Below) Other Cardiovascular History: Heart Attack Respiratory History: Reports: None Gastrointestinal History: Reports: GERD Genitourinary History: Reports: None Other Genitourinary History: kidney surgery done (2 weeks ago)(herlinda) 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: Musculoskeletal History: Reports: None Neurological History: Reports: None Psychiatric History: Reports: None Endocrine/Metabolic History: Reports: None Insulin Pump Model and Esl Instructor: None Hematologic History: Reports: None Immunologic History: Reports: None Oncologic (Cancer) History: Reports: None Dermatologic History: Reports: None - Infectious Disease History Infectious Disease History: Reports: None - Past Surgical History Head Surgeries/Procedures: Reports: None HEENT Surgical History: Reports: Cataract Surgery Cardiovascular Surgical History: Reports: Coronary Artery Stent Other Female Surgeries/Procedures: Kidney Stent Social & Family History - Family History Family Medical History: No Pertinent Family History - Caffeine Use Caffeine Use: Reports: None ED ROS GENERAL - Review of Systems Review Of Systems: Comprehensive ROS is negative, except as noted in HPI. ED EXAM, GI/ABD - Physical Exam Exam: See Below (See dictation) Course - Vital Signs Last Recorded V/S: Last Vital Signs Temp 97.6 F 04/27/20 10:24 Pulse 66 04/27/20 10:24 Resp 18 04/27/20 10:24 BP 148/54 H 04/27/20 10:24 Pulse Ox 97 04/27/20 10:24 - Orders/Labs/Meds Orders: Active Orders 24 hr Category Date Time Status Admission Status [Patient Status] [ADT] Stat ADT 04/27/20 11:57 Ordered EKG Documentation Completion [RC] STAT Care 04/27/20 10:24 Active UA RFX LESLIE AND CULT IF INDIC [URIN] Stat Lab 04/27/20 10:55 Ordered Sodium Chloride 0.9% [Normal Saline] 1,000 ml Med 04/27/20 10:24 Active IV STAT Sodium Chloride 0.9% [Saline Flush] Med 04/27/20 10:24 Active 10 ml FLUSH ASDIRECTED PRN Sodium Chloride 0.9% [Saline Flush] Med 04/27/20 10:24 Active 2.5 ml FLUSH ASDIRECTED PRN Saline Lock Insert [OM.PC] Stat Oth 04/27/20 10:24 Ordered Medication Orders Sodium Chloride (Normal Saline) 1,000 mls @ 100 mls/hr IV STAT ONE Stop: 04/27/20 20:23 Last Admin: 04/27/20 10:44 Dose: 100 mls/hr Documented by: TRISH Sodium Chloride (Saline Flush) 10 ml FLUSH ASDIRECTED PRN PRN Reason: Keep Vein Open Last Admin: 04/27/20 10:45 Dose: 10 ml Documented by: TRISH Sodium Chloride (Saline Flush) 2.5 ml FLUSH ASDIRECTED PRN PRN Reason: Keep Vein Open Last Admin: 04/27/20 10:45 Dose: 2.5 ml Documented by: TRISH Labs: Laboratory Tests 04/27/20 04/27/20 04/27/20 Range/Units 10:37 10:37 10:50 WBC 7.88 (4.0-11.0) K/uL RBC 5.01 (4.30-5.90) M/uL Hgb 14.6 (12.0-16.0) g/dL Hct 43.5 (36.0-46.0) % MCV 86.8 (80.0-98.0) fL MCH 29.1 (27.0-32.0) pg MCHC 33.6 (31.0-37.0) g/dL RDW Std Deviation 46.6 (28.0-62.0) fl RDW Coeff of Silver 15 (11.0-15.0) % Plt Count 172 (150-400) K/uL MPV 10.90 (7.40-12.00) fL Neut % (Auto) 90.9 H (48.0-80.0) % Lymph % (Auto) 5.6 L (16.0-40.0) % Alpine % (Auto) 3.2 (0.0-15.0) % Eos % (Auto) 0.0 (0.0-7.0) % Baso % (Auto) 0.3 (0.0-1.5) % Neut # (Auto) 7.2 H (1.4-5.7) K/uL Lymph # (Auto) 0.4 L (0.6-2.4) K/uL Alpine # (Auto) 0.3 (0.0-0.8) K/uL Eos # (Auto) 0.0 (0.0-0.7) K/uL Baso # (Auto) 0.0 (0.0-0.1) K/uL Nucleated RBC % 0.0 /100WBC Nucleated RBCs # 0 K/uL Sodium 138 (136-145) mmol/L Potassium 3.2 L (3.5-5.1) mmol/L Chloride 99 (98-107) mmol/L Carbon Dioxide 27.2 (21.0-32.0) mmol/L BUN 24 H (7.0-18.0) mg/dL Creatinine 1.3 H (0.6-1.0) mg/dL Est Cr Clr Drug Dosing 23.44 mL/min Estimated GFR (MDRD) 38.8 ml/min Glucose 148 H (74-106) mg/dL Calcium 8.7 (8.5-10.1) mg/dL Total Bilirubin 1.5 H (0.2-1.0) mg/dL AST 24 (15-37) IU/L ALT 23 (14-63) IU/L Alkaline Phosphatase 98 (46-116) U/L Creatine Kinase 95 (26-308) U/L Troponin I < 0.050 (0.000-0.056) ng/mL Total Protein 7.1 (6.4-8.2) g/dL Albumin 3.8 (3.4-5.0) g/dL Globulin 3.3 (2.6-4.0) g/dL Albumin/Globulin Ratio 1.2 (0.9-1.6) SARS-CoV-2 RNA (MELISSA) NEGATIVE (NEGATIVE) Meds: Medications Generic Name Dose Route Start Last Admin Trade Name Freq PRN Reason Stop Dose Admin Sodium Chloride 1,000 mls @ 100 mls/hr 04/27/20 10:24 04/27/20 10:44 Normal Saline IV 04/27/20 20:23 100 mls/hr STAT ONE Administration Sodium Chloride 10 ml 04/27/20 10:24 04/27/20 10:45 Saline Flush FLUSH 10 ml ASDIRECTED PRN Administration Keep Vein Open Sodium Chloride 2.5 ml 04/27/20 10:24 04/27/20 10:45 Saline Flush FLUSH 2.5 ml ASDIRECTED PRN Administration Keep Vein Open Departure - Departure Time of Disposition: 12:03 Disposition: Refer to Observation Clinical Impression: New onset a-fib, Fatigue after COVID-19 vaccination, Seizure-like activity Fall Qualifiers: Encounter type: initial encounter Qualified Code(s): W19.XXXA - Unspecified fall, initial encounter Syncope Qualifiers: Syncope type: unspecified Qualified Code(s): R55 - Syncope and collapse - Discharge Information Referrals: Surendra Jaimes MD [Primary Care Provider] - Forms: ED Department Discharge Sepsis Event Note (ED) - Focused Exam Vital Signs: Vital Signs Temp Pulse Resp BP Pulse Ox 04/27/20 10:24 97.6 F 66 18 148/54 H 97 - My Orders Last 24 Hours: My Active Orders 04/27/20 10:24 EKG Documentation Completion [RC] STAT Sodium Chloride 0.9% [Normal Saline] 1,000 ml IV STAT Sodium Chloride 0.9% [Saline Flush] 10 ml FLUSH ASDIRECTED PRN Sodium Chloride 0.9% [Saline Flush] 2.5 ml FLUSH ASDIRECTED PRN Saline Lock Insert [OM.PC] Stat 04/27/20 10:55 UA RFX LESLIE AND CULT IF INDIC [URIN] Stat 04/27/20 11:57 Admission Status [Patient Status] [ADT] Stat - Assessment/Plan Last 24 Hours: My Active Orders 04/27/20 10:24 EKG Documentation Completion [RC] STAT Sodium Chloride 0.9% [Normal Saline] 1,000 ml IV STAT Sodium Chloride 0.9% [Saline Flush] 10 ml FLUSH ASDIRECTED PRN Sodium Chloride 0.9% [Saline Flush] 2.5 ml FLUSH ASDIRECTED PRN Saline Lock Insert [OM.PC] Stat 04/27/20 10:55 UA RFX LESLIE AND CULT IF INDIC [URIN] Stat 04/27/20 11:57 Admission Status [Patient Status] [ADT] Stat
[2020-04-27] MEDS ORDERED: Sodium Chloride 0.9% 1,000 ML IV ONE (10:24)
[2020-04-27] MEDS ORDERED: Sodium Chloride 0.9% 10 ML Syringe FLUSH PRN (10:24)
[2020-04-27] MEDS ORDERED: Sodium Chloride 0.9% 2.5 ML Syringe FLUSH PRN ×2 (10:24→12:44)
--- NOTE | 2020-04-27 10:59 | PCM.EKG ---
#1 Interpretation EKG Date: 04/27/20 Time: 10:33 Rhythm: A-Fib Rate (Beats/Min): 68 Jarratt: Normal P-Wave: Present QRS: Normal ST-T: Normal QT: Normal Comparison: Change From Previous EKG (T wave inversions in II,III, avf unchanged. However, no hx of A fib) EKG Interpretation Comments: Atrial fibrillation
[2020-04-27 11:11] LABS: BLOOD UREA NITROGEN,BUN 24 mg/dL (7.0-18.0); CARBON DIOXIDE,CO2 27.2 mmol/L (21.0-32.0); CHLORIDE,CL 99 mmol/L (98-107); GLUCOSE RANDOM 148 mg/dL (74-106); POTASSIUM,K 3.2 mmol/L (3.5-5.1); SODIUM,NA 138 mmol/L (136-145)
--- NOTE | 2020-04-27 11:25 | CR ---
Indication: Syncope Comparison: Single view chest October 11, 2013 Technique: Single AP view chest Findings: There is hyperinflation and chronic interstitial change. There is no focal consolidation, effusion, or pneumothorax. Stable cardiac silhouette prominence. The bony thorax is grossly intact. Impression: No acute cardiopulmonary abnormality. Dictated by Young Jones MD @ Apr 27 2020 11:22AM Signed by Dr. Young Jones @ Apr 27 2020 11:23AM
--- NOTE | 2020-04-27 11:43 | CT ---
INDICATION: Syncope. Fell. Nausea and vomiting. TECHNIQUE: Scanning of the head was performed without IV contrast material. Coronal and sagittal reconstructions were obtained. COMPARISON: Head CT of 04/23/2019. FINDINGS: No acute hemorrhage or positive mass effect is demonstrated. No calvarial or obvious facial fracture is identified. The visualized paranasal and mastoid sinuses are clear. The ventricles and other subarachnoid spaces are within normal limits for the patient`s age. A small focus of encephalomalacia is again demonstrated in the anterolateral left frontal lobe just anterior to the sylvian fissure. There is nonspecific decreased attenuation in the cerebral white matter which is most likely due to aging/chronic microvascular ischemic disease. IMPRESSION: 1. Negative for acute traumatic abnormality. 2. Small focus of encephalomalacia in the anterolateral left frontal lobe. 3. Nonspecific cerebral white matter disease which is most likely due to aging/chronic microvascular ischemia. Please note that all CT scans at this facility use dose modulation, iterative reconstruction, and/or weight-based dosing when appropriate to reduce radiation dose to as low as reasonably achievable. Dictated by Demetrius Negrete MD @ Apr 27 2020 11:38AM Signed by Dr. Demetrius Negrete @ Apr 27 2020 11:42AM
[2020-04-27] MEDS ORDERED: Ondansetron 4 MG/2 ML SDV IVPUSH ONE (12:34)
[2020-04-27] MEDS ORDERED: Ondansetron 4 MG/2 ML SDV IVPUSH PRN (12:44)
[2020-04-27] MEDS ORDERED: Acetaminophen 325 MG Tab PO PRN (12:44)
[2020-04-27] MEDS ORDERED: Sodium Chloride 0.9% with KCl 1,000 ML IV ONE (13:12)
[2020-04-27] MEDS ORDERED: Magnesium Sulfate/Water 2 GM/50 ML BAG IV ONE (13:13)
--- NOTE | 2020-04-27 14:23 | PCM.HP.2 ---
H&P History of Present Illness - General Date of Service: 04/27/20 Admit Problem/Dx: Admission Diagnosis/Problem Admission Diagnosis/Problem Syncope Source of Information: Patient, Family (daughter Thuy at bedside) - History of Present Illness Initial Comments - Free Text/Narative: This 84-year-old female with past medical history of CAD with stenting, HTN, HLD, and GA presented to the ER with complaints of syncopal episodes with nausea and vomiting. She reports yesterday afternoon she received the second dose of her oderna Covid vaccine. She reports that she felt well until the evening when she had gotten up to the bathroom and had passed out while sitting on the toilet. She has no recollection of what happened with the first episode of passing out. She denies any chest pain shortness of breath lightheadedness or dizziness prior to syncopal episode. She reports that when she got up to the bathroom she knew she did not feel well and was feeling significantly nauseated with mild dizziness. Her son heard her fall and aided her back to the bed. Per reports she was unconscious for a a minute and then came before he assisted her back to bed. At this time she did also pass out a little bit again but then woke up very quickly. She had significant nausea overnight and had another episode of a syncopal episode with some tremulous or seizure-like activity in front of her daughter this morning. This is what provoked them to seek evaluation. Upon arrival to the ER she is feeling very nauseated she was given Zofran which significantly helped her nausea and has been feeling better since. She again denies any chest pain shortness of breath palpitations. She denies any lightheadedness or dizziness at the moment. She reports she did not hit her head when she passed out. She denies any fevers chills black or bloody stools and no focal neurological deficits. She reports again nausea and vomiting. She denies any tobacco use, alcohol use or recreational drug use. Her daughter reports that similar symptoms occurred last year when she had flulike symptoms. She had this tremulous seizure-like activity and passed out. She was treated with Zofran and some fluids and she felt much improved the next day. Upon review of the chart it appears that she had very similar pre sentation. EKG at that time again was showing possible a flutter. In the ER no leukocytosis noted her white count was 7.88 hemoglobin 14.6 hematocrit 43.5. Potassium 3.2 BUN 24 creatinine 1.3 which is around her baseline. Magnesium 1.7 bilirubin 1.5 other LFTs normal. Troponin negative. Covid swab negative. Heart rate in the ER 66 blood pressure 148/54. She was given normal saline 1 L. EKG revealed possible atrial fibrillation a flutter. Heart rate remained controlled. There is no history of A. fib in the past. She will be admitted secondary to syncopal episode along with nausea and vomiting and new onset A. fib. PCP Dr. Jaimes rlq Pain Score (Numeric/FACES): 4 - Related Data Allergies/Adverse Reactions: Allergies Allergy/AdvReac Type Severity Reaction Status Date / Time No Known Allergies Allergy Verified 04/27/20 14:37 Home Medications: Home Meds Metoprolol Succinate 25 mg PO BEDTIME 04/23/19 [History] atorvaSTATin [Lipitor] 20 mg PO DAILY 04/23/19 [History] Acetaminophen [Tylenol] 650 mg PO Q4H PRN #10 tablet 04/24/19 [Rx] Aspirin [Aspirin EC] 81 mg PO DAILY 04/27/20 [History] hydroCHLOROthiazide [Hydrochlorothiazide] 25 mg PO DAILY 04/27/20 [History] lisinopriL [Lisinopril] 20 mg PO DAILY 04/27/20 [History] Past Medical History HEENT History: Reports: Cataract, Impaired Vision Cardiovascular History: Reports: CAD, High Cholesterol, Hypertension, GA, Stents Respiratory History: Reports: None. 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 Hematologic History: Reports: None Immunologic History: Reports: None Oncologic (Cancer) History: Reports: None Dermatologic History: Reports: None - Infectious Disease History Infectious Disease History: Reports: None - Past Surgical History Head Surgeries/Procedures: Reports: None HEENT Surgical History: Reports: Cataract Surgery Cardiovascular Surgical History: Reports: Coronary Artery Stent Female Surgical History: Reports: Other (See Below) Other Female Surgeries/Procedures: Kidney Stent Social & Family History - Family History Family Medical History: No Pertinent Family History - Tobacco Use Tobacco Use Status *Q: Never Tobacco User - Caffeine Use Caffeine Use: Reports: None - Alcohol Use Alcohol Use History: No - Recreational Drug Use Recreational Drug Use: No - Living Situation & Occupation Living situation: Reports: with Family Occupation: Retired H&P Review of Systems - Review of Systems: Review Of Systems: See Below General: Reports: Malaise, Weakness, Fatigue. Denies: Fever, Chills HEENT: Reports: Vertigo (Mild dizziness earlier). Denies: Headaches, Sinus Congestion Pulmonary: Reports: No Symptoms. Denies: Shortness of Breath Cardiovascular: Reports: Syncope. Denies: Chest Pain, Dyspnea on Exertion, Edema, Lightheadedness, Blood Pressure Problem Gastrointestinal: Reports: Nausea (Feeling much better after Zofran in the ER), Vomiting. Denies: Abdominal Pain, Black Stool, Constipation Genitourinary: Reports: No Symptoms. Denies: Dysuria, Frequency, Burning Musculoskeletal: Reports: No Symptoms Skin: Reports: No Symptoms Psychiatric: Reports: No Symptoms. Denies: Confusion Neurological: Reports: Syncope Hematologic/Lymphatic: Reports: No Symptoms Immunologic: Reports: No Symptoms Exam - Exam Exam: See Below - Vital Signs Vital Signs: Last Vital Signs Temp 98.2 F 04/27/20 13:34 Pulse 63 04/27/20 13:34 Resp 16 04/27/20 13:34 BP 136/72 04/27/20 13:34 Pulse Ox 97 04/27/20 13:34 Weight: 54.431 kg - Exam General: Alert, Oriented, Cooperative HEENT: Conjunctiva Clear, Posterior Pharynx Clear. No: Mucosa Moist & [place] (Dry) Neck: Supple, Trachea Midline Lungs: Clear to Auscultation, Normal Respiratory Effort Cardiovascular: Regular Rate, Irregular Rhythm. No: Systolic Murmur GI/Abdominal Exam: Normal Bowel Sounds, Soft, Non-Tender, No Organomegaly, No Distention Back Exam: Normal Inspection, Full Range of Motion Extremities: Normal Inspection, Normal Range of Motion, Non-Tender, No Pedal Edema Neuro Extensive - Mental Status: Alert, Oriented x3 Neuro Extensive - Motor, Sensory, Reflexes: CN II-XII Intact Psychiatric: Alert, Normal Affect, Normal Mood - Patient Data Lab Results Last 24 hrs: Laboratory Results - last 24 hr 04/27/20 04/27/20 04/27/20 Range/Units 10:37 10:37 10:37 WBC 7.88 (4.0-11.0) K/uL RBC 5.01 (4.30-5.90) M/uL Hgb 14.6 (12.0-16.0) g/dL Hct 43.5 (36.0-46.0) % MCV 86.8 (80.0-98.0) fL MCH 29.1 (27.0-32.0) pg MCHC 33.6 (31.0-37.0) g/dL RDW Std Deviation 46.6 (28.0-62.0) fl RDW Coeff of Silver 15 (11.0-15.0) % Plt Count 172 (150-400) K/uL MPV 10.90 (7.40-12.00) fL Neut % (Auto) 90.9 H (48.0-80.0) % Lymph % (Auto) 5.6 L (16.0-40.0) % [place] % (Auto) 3.2 (0.0-15.0) % Eos % (Auto) 0.0 (0.0-7.0) % Baso % (Auto) 0.3 (0.0-1.5) % Neut # (Auto) 7.2 H (1.4-5.7) K/uL Lymph # (Auto) 0.4 L (0.6-2.4) K/uL [place] # (Auto) 0.3 (0.0-0.8) K/uL Eos # (Auto) 0.0 (0.0-0.7) K/uL Baso # (Auto) 0.0 (0.0-0.1) K/uL Nucleated RBC % 0.0 /100WBC Nucleated RBCs # 0 K/uL Sodium 138 (136-145) mmol/L Potassium 3.2 L (3.5-5.1) mmol/L Chloride 99 (98-107) mmol/L Carbon Dioxide 27.2 (21.0-32.0) mmol/L BUN 24 H (7.0-18.0) mg/dL Creatinine 1.3 H (0.6-1.0) mg/dL Est Cr Clr Drug Dosing 23.44 mL/min Estimated GFR (MDRD) 38.8 ml/min Glucose 148 H (74-106) mg/dL Calcium 8.7 (8.5-10.1) mg/dL Magnesium 1.7 L (1.8-2.4) mg/dL Total Bilirubin 1.5 H (0.2-1.0) mg/dL AST 24 (15-37) IU/L ALT 23 (14-63) IU/L Alkaline Phosphatase 98 (46-116) U/L Creatine Kinase 95 (26-308) U/L Troponin I < 0.050 (0.000-0.056) ng/mL Total Protein 7.1 (6.4-8.2) g/dL Albumin 3.8 (3.4-5.0) g/dL Globulin 3.3 (2.6-4.0) g/dL Albumin/Globulin Ratio 1.2 (0.9-1.6) Urine Color Urine Appearance Urine pH (5.0-8.0) Ur Specific [place] (1.001-1.035) Urine Protein (NEGATIVE) mg/dL Urine Glucose (UA) (NEGATIVE) mg/dL Urine Ketones (NEGATIVE) mg/dL Urine Occult Blood (NEGATIVE) Urine Nitrite (NEGATIVE) Urine Bilirubin (NEGATIVE) Urine Urobilinogen (<2.0) EU/dL Ur Leukocyte Esterase (NEGATIVE) SARS-CoV-2 RNA (MELISSA) (NEGATIVE) 04/27/20 04/27/20 Range/Units 10:50 13:40 WBC (4.0-11.0) K/uL RBC (4.30-5.90) M/uL Hgb (12.0-16.0) g/dL Hct (36.0-46.0) % MCV (80.0-98.0) fL MCH (27.0-32.0) pg MCHC (31.0-37.0) g/dL RDW Std Deviation (28.0-62.0) fl RDW Coeff of Silver (11.0-15.0) % Plt Count (150-400) K/uL MPV (7.40-12.00) fL Neut % (Auto) (48.0-80.0) % Lymph % (Auto) (16.0-40.0) % [place] % (Auto) (0.0-15.0) % Eos % (Auto) (0.0-7.0) % Baso % (Auto) (0.0-1.5) % Neut # (Auto) (1.4-5.7) K/uL Lymph # (Auto) (0.6-2.4) K/uL [place] # (Auto) (0.0-0.8) K/uL Eos # (Auto) (0.0-0.7) K/uL Baso # (Auto) (0.0-0.1) K/uL Nucleated RBC % /100WBC Nucleated RBCs # K/uL Sodium (136-145) mmol/L Potassium (3.5-5.1) mmol/L Chloride (98-107) mmol/L Carbon Dioxide (21.0-32.0) mmol/L BUN (7.0-18.0) mg/dL Creatinine (0.6-1.0) mg/dL Est Cr Clr Drug Dosing mL/min Estimated GFR (MDRD) ml/min Glucose (74-106) mg/dL Calcium (8.5-10.1) mg/dL Magnesium (1.8-2.4) mg/dL Total Bilirubin (0.2-1.0) mg/dL AST (15-37) IU/L ALT (14-63) IU/L Alkaline Phosphatase (46-116) U/L Creatine Kinase (26-308) U/L Troponin I (0.000-0.056) ng/mL Total Protein (6.4-8.2) g/dL Albumin (3.4-5.0) g/dL Globulin (2.6-4.0) g/dL Albumin/Globulin Ratio (0.9-1.6) Urine Color YELLOW Urine Appearance CLEAR Urine pH 6.0 (5.0-8.0) Ur Specific [place] 1.025 (1.001-1.035) Urine Protein NEGATIVE (NEGATIVE) mg/dL Urine Glucose (UA) NEGATIVE (NEGATIVE) mg/dL Urine Ketones 15 H (NEGATIVE) mg/dL Urine Occult Blood TRACE-INTACT H (NEGATIVE) Urine Nitrite NEGATIVE (NEGATIVE) Urine Bilirubin NEGATIVE (NEGATIVE) Urine Urobilinogen 0.2 (<2.0) EU/dL Ur Leukocyte Esterase NEGATIVE (NEGATIVE) SARS-CoV-2 RNA (MELISSA) NEGATIVE (NEGATIVE) Result Diagrams: 04/27/20 10:37 04/27/20 10:37 Sepsis Event Note - Evaluation Sepsis Screening Result: No Definite Risk - Focused Exam Vital Signs: Vital Signs Temp Pulse Resp BP Pulse Ox 04/27/20 13:34 98.2 F 63 16 136/72 97 04/27/20 12:58 70 124/62 98 04/27/20 12:29 76 132/52 L 98 04/27/20 11:28 59 L 123/58 L 97 04/27/20 10:59 64 140/50 L 98 04/27/20 10:29 67 164/69 H 96 04/27/20 10:24 97.6 F 66 18 148/54 H 97 - Problem List (1) Nausea & vomiting SNOMED Code(s): 42470820 ICD Code: R11.2 - NAUSEA WITH VOMITING, UNSPECIFIED Status: Acute Current Visit: Yes (2) Fall SNOMED Code(s): 8902271, 144509271 ICD Code: W19.XXXA - UNSPECIFIED FALL, INITIAL ENCOUNTER Status: Acute Current Visit: Yes Qualifiers: Encounter type: initial encounter Qualified Code(s): W19.XXXA - Unspecified fall, initial encounter (3) Fatigue after COVID-19 vaccination SNOMED Code(s): 83360395 ICD Code: R53.83 - OTHER FATIGUE; T50.B95A - ADVERSE EFFECT OF OTHER VIRAL VACCINES, INITIAL ENCOUNTER Status: Acute Current Visit: Yes (4) New onset a-fib SNOMED Code(s): 12507319 ICD Code: I48.91 - UNSPECIFIED ATRIAL FIBRILLATION Status: Acute Current Visit: Yes (5) Seizure-like activity SNOMED Code(s): 955104790 ICD Code: R56.9 - UNSPECIFIED CONVULSIONS Status: Acute Current Visit: Yes (6) Syncope SNOMED Code(s): 473288146 ICD Code: R55 - SYNCOPE AND COLLAPSE Status: Acute Current Visit: Yes Qualifiers: Syncope type: unspecified Qualified Code(s): R55 - Syncope and collapse (7) HLD (hyperlipidemia) SNOMED Code(s): 55830266 ICD Code: E78.5 - HYPERLIPIDEMIA, UNSPECIFIED Status: Chronic Current Visit: Yes (8) History of myocardial infarction SNOMED Code(s): 066045639 ICD Code: I25.2 - OLD MYOCARDIAL INFARCTION Status: Chronic Current Visit: Yes (9) History of coronary artery stent placement SNOMED Code(s): 663940035, 379488511 ICD Code: Z95.5 - PRESENCE OF CORONARY ANGIOPLASTY IMPLANT AND GRAFT Status: Chronic Current Visit: Yes (10) Coronary arteriosclerosis, CAD SNOMED Code(s): 32589929 ICD Code: I25.10 - ATHSCL HEART DISEASE OF [place] CORONARY ARTERY W/O ANG PCTRS Status: Chronic Current Visit: No (11) HTN, Essential hypertension SNOMED Code(s): 74592512 ICD Code: I10 - ESSENTIAL (PRIMARY) HYPERTENSION Status: Chronic Current Visit: No (12) Hypokalemia SNOMED Code(s): 45178111 ICD Code: E87.6 - HYPOKALEMIA Status: Acute Current Visit: Yes (13) Hypomagnesemia SNOMED Code(s): 658235860 ICD Code: E83.42 - HYPOMAGNESEMIA Status: Acute Current Visit: Yes Problem List Initiated/Reviewed/Updated: Yes Orders Last 24hrs: Active Orders 24 hr Category Date Time Status Admission Status [Patient Status] [ADT] Stat ADT 04/27/20 11:57 Active EKG 12 Lead [EKG Documentation Completion] [RC] STAT Care 04/27/20 13:21 Active Intake and Output [RC] QSHIFT Care 04/27/20 12:44 Active Orthostatic Vital Signs [RC] ONETIME Care 04/27/20 12:41 Active Oxygen Therapy [RC] PRN Care 04/27/20 12:44 Active Telemetry Monitoring [Cardiac Monitoring] [RC] Q8H Care 04/27/20 12:39 Active Up With Assistance [RC] ASDIRECTED Care 04/27/20 12:44 Active VTE/DVT Education [RC] PER UNIT ROUTINE Care 04/27/20 12:44 Active Vital Signs [RC] Q4H Care 04/27/20 12:44 Active CBC WITH AUTO DIFF [HEME] AM Lab 04/28/20 05:11 Ordered COMPREHENSIVE METABOLIC PN,CMP [CHEM] AM Lab 04/28/20 05:11 Ordered MAGNESIUM [CHEM] AM Lab 04/28/20 05:11 Ordered TROPONIN I [CHEM] Q6H Lab 04/27/20 16:30 Ordered TROPONIN I [CHEM] Q6H Lab 04/27/20 22:30 Ordered UA RFX LESLIE AND CULT IF INDIC [URIN] Stat Lab 04/27/20 10:55 Ordered Acetaminophen [TylenoL] Med 04/27/20 12:44 Active 650 mg PO Q4H PRN Aspirin [Halfprin] Med 04/28/20 09:00 Active 81 mg PO DAILY Metoprolol Succinate [Toprol XL] Med 04/27/20 21:00 Active 25 mg PO BEDTIME Ondansetron [Zofran] Med 04/27/20 12:44 Active 4 mg IVPUSH Q4H PRN Sodium Chloride 0.9% [Normal Saline] 1,000 ml Med 04/27/20 10:24 Active IV STAT Sodium Chloride 0.9% [Saline Flush] Med 04/27/20 12:44 Active 2.5 ml FLUSH ASDIRECTED PRN Sodium Chloride 0.9% with KCl [Normal Saline with 40 Med 04/27/20 13:12 Active mEq KCl] 1,000 ml IV ONETIME atorvaSTATin [Lipitor] Med 04/27/20 21:00 Active 20 mg PO BEDTIME Saline Lock Insert [OM.PC] Routine Oth 04/27/20 12:44 Ordered Seizure Precautions [OM.PC] Routine Oth 04/27/20 13:10 Ordered Medication Orders Acetaminophen (Tylenol) 650 mg PO Q4H PRN PRN Reason: Pain (Mild 1-3)/fever Aspirin (Halfprin) 81 mg PO DAILY IJEOMA Atorvastatin Calcium (Lipitor) 20 mg PO BEDTIME IJEOMA Sodium Chloride (Normal Saline) 1,000 mls @ 100 mls/hr IV STAT ONE Stop: 04/27/20 20:23 Last Infusion: 04/27/20 10:44 Dose: 999 mls/hr Documented by: Admin: 04/27/20 10:44 Dose: 100 mls/hr Documented by: TRISH Potassium Chloride/Sodium Chloride (Normal Saline With 40 Meq Kcl) 1,000 mls @ 125 mls/hr IV ONETIME ONE Stop: 04/27/20 21:11 Last Admin: 04/27/20 13:51 Dose: 125 mls/hr Documented by: YAMILKA Metoprolol Succinate (Toprol Xl) 25 mg PO BEDTIME IJEOMA Ondansetron HCl (Zofran) 4 mg IVPUSH Q4H PRN PRN Reason: Nausea Sodium Chloride (Saline Flush) 2.5 ml FLUSH ASDIRECTED PRN PRN Reason: Keep Vein Open Last Admin: 04/27/20 13:50 Dose: 2.5 ml Documented by: YAMILKA Assessment/Plan Comment:: This 84-year-old female admitted with nausea vomiting and syncopal episode also found to have new onset A. fib. 1. Syncopal episode -Could be secondary to dehydration and recent Covid vaccination. -We will give 1 more liter of fluid with 40 mEq potassium -Check orthostatic blood pressures -Trend troponins x2, patient has been chest pain-free -Monitor on telemetry -We will need Zio patch upon discharge to evaluate A. fib -We will keep on seizure precautions though seizure is low on differential. Patient was aware of tremors happening when they were happening. 2. Nausea vomiting -Much improved with Zofran in the ER -Heart healthy diet -Supportive care -Zofran as needed 3. New onset atrial fibrillation -Replace magnesium and potassium to keep magnesium above 2 and potassium above 4 -Continue metoprolol -Monitor on telemetry -[id number] score is 2 will need to have a discussion with family and patient regarding anticoagulation. -Continue aspirin for now 4. CAD/HTN/HLD -Continue metoprolol and statin along with aspirin -Hold HCTZ and lisinopril due to some dehydration today. VTE prophylaxis: SCDs and ambulation CODE STATUS: DNR/DNI Dispo: 1 to [address] Daley at bedside was updated and agrees with treatment plan listed above.
[2020-04-27] MEDS ORDERED: atorvaSTATin 20 MG Tab PO SCH (21:00)
[2020-04-27] MEDS ORDERED: Metoprolol Succinate 25 MG Tab.ER PO SCH (21:00)
[2020-04-28 06:08] LABS: CARBON DIOXIDE,CO2 26.9 mmol/L (21.0-32.0); POTASSIUM,K 3.6 mmol/L (3.5-5.1)
[2020-04-28] MEDS ORDERED: Lisinopril 10 MG Tab PO SCH (09:00)
[2020-04-28] MEDS ORDERED: Hydrochlorothiazide 25 MG Tab PO SCH (09:00)
[2020-04-28] MEDS ORDERED: Aspirin 81 MG Tab.EC PO SCH (09:00)
[2020-04-28] MEDS ORDERED: Potassium Chloride 20 MEQ Tab.ER PO ONE (09:00)
--- NOTE | 2020-04-28 09:52 | PCM.DCSUM1 ---
Discharge Summary - Hospital Course Brief History: This 84-year-old female with past medical history of CAD with stenting, HTN, HLD, and OR presented to the ER with complaints of syncopal episodes with nausea and vomiting. She reports yesterday afternoon she received the second dose of her oderna Covid vaccine. She reports that she felt well until the evening when she had gotten up to the bathroom and had passed out while sitting on the toilet. She has no recollection of what happened with the first episode of passing out. She denies any chest pain shortness of breath lightheadedness or dizziness prior to syncopal episode. She reports that when she got up to the bathroom she knew she did not feel well and was feeling significantly nauseated with mild dizziness. Her son heard her fall and aided her back to the bed. Per reports she was unconscious for a a minute and then came before he assisted her back to bed. At this time she did also pass out a little bit again but then woke up very quickly. She had significant nausea overnight and had another episode of a syncopal episode with some tremulous or seizure-like activity in front of her daughter this morning. This is what provoked them to seek evaluation. Upon arrival to the ER she is feeling very nauseated she was given Zofran which significantly helped her nausea and has been feeling better since. She again denies any chest pain shortness of breath palpitations. She denies any lightheadedness or dizziness at the moment. She reports she did not hit her head when she passed out. She denies any fevers chills black or bloody stools and no focal neurological deficits. She reports again nausea and vomiting. She denies any tobacco use, alcohol use or recreational drug use. Her daughter reports that similar symptoms occurred last year when she had flulike symptoms. She had this tremulous seizure-like activity and passed out. She was treated with Zofran and some fluids and she felt much improved the next day. Upon review of the chart it appears that she had very similar presentation. EKG at that time again was showing possible a flutter. In the ER no leukocytosis noted her white count was 7.88 hemoglobin 14.6 hematocrit 43.5. Potassium 3.2 BUN 24 creatinine 1.3 which is around her baseline. Magnesium 1.7 bilirubin 1.5 other LFTs normal. Troponin negative. Covid swab negative. Heart rate in the ER 66 blood pressure 148/54. She was given normal saline 1 L. EKG revealed possible atrial fibrillation a flutter. Heart rate remained controlled. There is no history of A. fib in the past. She will be admitted secondary to syncopal episode along with nausea and vomiting and new onset A. fib. PCP Dr. Jaimes - Discharge Data Discharge Date: 04/28/20 Discharge Disposition: Home, Self-Care 01 Condition: Stable - Referral to Home Health Primary Care Physician: Surendra Jaimes MD - Discharge Diagnosis/Problem(s) (1) Nausea & vomiting SNOMED Code(s): 24539151 ICD Code: R11.2 - NAUSEA WITH VOMITING, UNSPECIFIED Status: Acute Current Visit: Yes (2) Fall SNOMED Code(s): 0095906, 156236554 ICD Code: W19.XXXA - UNSPECIFIED FALL, INITIAL ENCOUNTER Status: Acute Current Visit: Yes Qualifiers: Encounter type: initial encounter Qualified Code(s): W19.XXXA - Unspecified fall, initial encounter (3) Fatigue after COVID-19 vaccination SNOMED Code(s): 23299843 ICD Code: R53.83 - OTHER FATIGUE; T50.B95A - ADVERSE EFFECT OF OTHER VIRAL VACCINES, INITIAL ENCOUNTER Status: Acute Current Visit: Yes (4) New onset a-fib SNOMED Code(s): 03347897 ICD Code: I48.91 - UNSPECIFIED ATRIAL FIBRILLATION Status: Acute Current Visit: Yes (5) Seizure-like activity SNOMED Code(s): 636899620 ICD Code: R56.9 - UNSPECIFIED CONVULSIONS Status: Acute Current Visit: Yes (6) Syncope SNOMED Code(s): 013168674 ICD Code: R55 - SYNCOPE AND COLLAPSE Status: Acute Current Visit: Yes Qualifiers: Syncope type: unspecified Qualified Code(s): R55 - Syncope and collapse (7) HLD (hyperlipidemia) SNOMED Code(s): 93985657 ICD Code: E78.5 - HYPERLIPIDEMIA, UNSPECIFIED Status: Chronic Current Visit: Yes (8) History of myocardial infarction SNOMED Code(s): 394193348 ICD Code: I25.2 - OLD MYOCARDIAL INFARCTION Status: Chronic Current Visit: Yes (9) History of coronary artery stent placement SNOMED Code(s): 470218591, 219292989 ICD Code: Z95.5 - PRESENCE OF CORONARY ANGIOPLASTY IMPLANT AND GRAFT Status: Chronic Current Visit: Yes (10) Coronary arteriosclerosis, CAD SNOMED Code(s): 09177591 ICD Code: I25.10 - ATHSCL HEART DISEASE OF [place] CORONARY ARTERY W/O ANG PCTRS Status: Chronic Current Visit: No (11) HTN, Essential hypertension SNOMED Code(s): 49749310 ICD Code: I10 - ESSENTIAL (PRIMARY) HYPERTENSION Status: Chronic Current Visit: No (12) Hypokalemia SNOMED Code(s): 61784886 ICD Code: E87.6 - HYPOKALEMIA Status: Acute Current Visit: Yes (13) Hypomagnesemia SNOMED Code(s): 862415320 ICD Code: E83.42 - HYPOMAGNESEMIA Status: Acute Current Visit: Yes - Patient Summary/Data Hospital Course: Admission diagnoses: Syncope Fall New onset atrial fibrillation Discharge diagnoses: Syncope Fall New onset atrial fibrillation Mckenzie was admitted secondary to syncopal episode that happened 2 times at home. Upon arrival to the ER he was noted to have new onset atrial fibrillation controlled. Orthostatic vital signs stable no hypotension noted. Troponin was obtained which was negative. Patient was monitored on telemetry overnight and given gentle hydration with potassium replacement. Overnight telemetry noted continued atrial fibrillation but with rates dipping to low 30s. She does take metoprolol succinate 25 mg nightly. This will be decreased to 12.5 nightly. We also did discuss with her the new diagnosis of atrial fibrillation and her [id number] score 2. She is in need of a blood thinner. We discussed the pros and cons of this and the need for stroke prevention. She at this time has decided to go with Eliquis. We will start Eliquis 5 mg twice daily she is to monitor for any types of bleeding including black bloody bowel movements and if she were to fall and hit her head she was counseled to be evaluated promptly. She will also go home with Zio patch to monitor heart rates this will be worn for 14 days and results will be sent to Dr. Jaimes PCP. Today she is feeling much improved no further syncopal episodes blood pressures and vital signs are stable. She is very eager to go home today. She will be discharged home today with slight changes in her home medication. Again metoprolol be decreased to 12.5 mg and she will be added Eliquis 5 mg twice daily for new onset atrial fibrillation. She is to follow-up with PCP as an outpatient. Echo pending on discharge. Daughter, Thuy, updated on treatment plan. She will be discharged home today she is to return to the ER or clinic if concerns should arise. - Patient Instructions Diet: Heart Healthy Diet Activity: As Tolerated, No Strenuous Activities Showering/Bathing: May Shower Notify Provider of: Fever, Increased Pain, Swelling and Redness, Drainage, Nausea and/or Vomiting Other/Special Instructions: Monitor for signs of bleeding, such as black or bloody bowel movements. If you fall and hit your head, please come to ER to be evaluated promptly. ZIO patch to be in place for 14 days then remove and send in prepaid box report to be sent to Dr Jaimes. - Discharge Plan *PRESCRIPTION DRUG MONITORING PROGRAM REVIEWED*: Not Applicable *COPY OF PRESCRIPTION DRUG MONITORING REPORT IN PATIENT BETH: Not Applicable Prescriptions/Med Rec: Apixaban [Eliquis] 5 mg PO BID #60 tablet Metoprolol Succinate [Toprol XL] 12.5 mg PO BEDTIME #30 tab.er Home Medications: Home Meds atorvaSTATin [Lipitor] 20 mg PO DAILY 04/23/19 [History] Acetaminophen [Tylenol] 650 mg PO Q4H PRN #10 tablet 04/24/19 [Rx] Aspirin [Aspirin EC] 81 mg PO DAILY 04/27/20 [History] hydroCHLOROthiazide [Hydrochlorothiazide] 25 mg PO DAILY 04/27/20 [History] lisinopriL [Lisinopril] 20 mg PO DAILY 04/27/20 [History] Apixaban [Eliquis] 5 mg PO BID #60 tablet 04/28/20 [Rx] Metoprolol Succinate [Toprol XL] 12.5 mg PO BEDTIME #30 tab.er 04/28/20 [Rx] Oxygen Therapy Mode: Room Air Patient Handouts: Metoprolol extended-release capsules, Apixaban oral tablets, Atrial Fibrillation, Syncope, [id number] Referrals: Surendra Jaimes MD [Primary Care Provider] - 05/10/20 8:00 am - Discharge Summary/Plan Comment DC Time >30 min.: No - Patient Data Vitals - Most Recent: Last Vital Signs Temp 97.2 F 04/28/20 07:57 Pulse 62 04/28/20 07:57 Resp 16 04/28/20 07:57 BP 176/81 H 04/28/20 09:14 Pulse Ox 96 04/28/20 07:57 Orthostatic Blood Pressure [ 147/65 Standing] Orthostatic Blood Pressure [ 137/65 Sitting] Orthostatic Blood Pressure [ 136/60 Supine] Weight - Most Recent: 56.382 kg I&O - Last 24 hours: Intake & Output 04/27/20 04/28/20 04/28/20 22:59 06:59 14:59 Intake Total 240 1650 Output Total 200 600 Balance 40 1050 Lab Results - Last 24 hrs: Laboratory Results - last 24 hr 04/27/20 04/27/20 04/27/20 Range/Units 10:37 10:37 10:37 WBC 7.88 (4.0-11.0) K/uL RBC 5.01 (4.30-5.90) M/uL Hgb 14.6 (12.0-16.0) g/dL Hct 43.5 (36.0-46.0) % MCV 86.8 (80.0-98.0) fL MCH 29.1 (27.0-32.0) pg MCHC 33.6 (31.0-37.0) g/dL RDW Std Deviation 46.6 (28.0-62.0) fl RDW Coeff of Silver 15 (11.0-15.0) % Plt Count 172 (150-400) K/uL MPV 10.90 (7.40-12.00) fL Neut % (Auto) 90.9 H (48.0-80.0) % Lymph % (Auto) 5.6 L (16.0-40.0) % Dickenson % (Auto) 3.2 (0.0-15.0) % Eos % (Auto) 0.0 (0.0-7.0) % Baso % (Auto) 0.3 (0.0-1.5) % Neut # (Auto) 7.2 H (1.4-5.7) K/uL Lymph # (Auto) 0.4 L (0.6-2.4) K/uL Dickenson # (Auto) 0.3 (0.0-0.8) K/uL Eos # (Auto) 0.0 (0.0-0.7) K/uL Baso # (Auto) 0.0 (0.0-0.1) K/uL Nucleated RBC % 0.0 /100WBC Nucleated RBCs # 0 K/uL Sodium 138 (136-145) mmol/L Potassium 3.2 L (3.5-5.1) mmol/L Chloride 99 (98-107) mmol/L Carbon Dioxide 27.2 (21.0-32.0) mmol/L BUN 24 H (7.0-18.0) mg/dL Creatinine 1.3 H (0.6-1.0) mg/dL Est Cr Clr Drug Dosing 23.44 mL/min Estimated GFR (MDRD) 38.8 ml/min Glucose 148 H (74-106) mg/dL Calcium 8.7 (8.5-10.1) mg/dL Magnesium 1.7 L (1.8-2.4) mg/dL Total Bilirubin 1.5 H (0.2-1.0) mg/dL AST 24 (15-37) IU/L ALT 23 (14-63) IU/L Alkaline Phosphatase 98 (46-116) U/L Creatine Kinase 95 (26-308) U/L Troponin I < 0.050 (0.000-0.056) ng/mL Total Protein 7.1 (6.4-8.2) g/dL Albumin 3.8 (3.4-5.0) g/dL Globulin 3.3 (2.6-4.0) g/dL Albumin/Globulin Ratio 1.2 (0.9-1.6) TSH 3rd Generation (0.36-3.74) uIU/mL Urine Color Urine Appearance Urine pH (5.0-8.0) Ur Specific Counselor (1.001-1.035) Urine Protein (NEGATIVE) mg/dL Urine Glucose (UA) (NEGATIVE) mg/dL Urine Ketones (NEGATIVE) mg/dL Urine Occult Blood (NEGATIVE) Urine Nitrite (NEGATIVE) Urine Bilirubin (NEGATIVE) Urine Urobilinogen (<2.0) EU/dL Ur Leukocyte Esterase (NEGATIVE) Urine RBC (0-2/HPF) Urine WBC (0-5/HPF) Ur Epithelial Cells (NONE-FEW) Urine Bacteria (NEGATIVE) SARS-CoV-2 RNA (MELISSA) (NEGATIVE) 04/27/20 04/27/20 04/27/20 Range/Units 10:37 10:50 13:40 WBC (4.0-11.0) K/uL RBC (4.30-5.90) M/uL Hgb (12.0-16.0) g/dL Hct (36.0-46.0) % MCV (80.0-98.0) fL MCH (27.0-32.0) pg MCHC (31.0-37.0) g/dL RDW Std Deviation (28.0-62.0) fl RDW Coeff of Silver (11.0-15.0) % Plt Count (150-400) K/uL MPV (7.40-12.00) fL Neut % (Auto) (48.0-80.0) % Lymph % (Auto) (16.0-40.0) % Dickenson % (Auto) (0.0-15.0) % Eos % (Auto) (0.0-7.0) % Baso % (Auto) (0.0-1.5) % Neut # (Auto) (1.4-5.7) K/uL Lymph # (Auto) (0.6-2.4) K/uL Dickenson # (Auto) (0.0-0.8) K/uL Eos # (Auto) (0.0-0.7) K/uL Baso # (Auto) (0.0-0.1) K/uL Nucleated RBC % /100WBC Nucleated RBCs # K/uL Sodium (136-145) mmol/L Potassium (3.5-5.1) mmol/L Chloride (98-107) mmol/L Carbon Dioxide (21.0-32.0) mmol/L BUN (7.0-18.0) mg/dL Creatinine (0.6-1.0) mg/dL Est Cr Clr Drug Dosing mL/min Estimated GFR (MDRD) ml/min Glucose (74-106) mg/dL Calcium (8.5-10.1) mg/dL Magnesium (1.8-2.4) mg/dL Total Bilirubin (0.2-1.0) mg/dL AST (15-37) IU/L ALT (14-63) IU/L Alkaline Phosphatase (46-116) U/L Creatine Kinase (26-308) U/L Troponin I (0.000-0.056) ng/mL Total Protein (6.4-8.2) g/dL Albumin (3.4-5.0) g/dL Globulin (2.6-4.0) g/dL Albumin/Globulin Ratio (0.9-1.6) TSH 3rd Generation 0.86 (0.36-3.74) uIU/mL Urine Color YELLOW Urine Appearance CLEAR Urine pH 6.0 (5.0-8.0) Ur Specific Counselor 1.025 (1.001-1.035) Urine Protein NEGATIVE (NEGATIVE) mg/dL Urine Glucose (UA) NEGATIVE (NEGATIVE) mg/dL Urine Ketones 15 H (NEGATIVE) mg/dL Urine Occult Blood TRACE-INTACT H (NEGATIVE) Urine Nitrite NEGATIVE (NEGATIVE) Urine Bilirubin NEGATIVE (NEGATIVE) Urine Urobilinogen 0.2 (<2.0) EU/dL Ur Leukocyte Esterase NEGATIVE (NEGATIVE) Urine RBC 0-2 (0-2/HPF) Urine WBC 0-1 (0-5/HPF) Ur Epithelial Cells RARE (NONE-FEW) Urine Bacteria RARE (NEGATIVE) SARS-CoV-2 RNA (MELISSA) NEGATIVE (NEGATIVE) 04/27/20 04/27/20 04/28/20 Range/Units 16:31 22:32 05:35 WBC 4.48 (4.0-11.0) K/uL RBC 4.36 (4.30-5.90) M/uL Hgb 12.6 (12.0-16.0) g/dL Hct 38.2 (36.0-46.0) % MCV 87.6 (80.0-98.0) fL MCH 28.9 (27.0-32.0) pg MCHC 33.0 (31.0-37.0) g/dL RDW Std Deviation 47.9 (28.0-62.0) fl RDW Coeff of Silver 15 (11.0-15.0) % Plt Count 165 (150-400) K/uL MPV 11.00 (7.40-12.00) fL Neut % (Auto) 59.5 (48.0-80.0) % Lymph % (Auto) 24.6 (16.0-40.0) % Dickenson % (Auto) 11.2 (0.0-15.0) % Eos % (Auto) 4.0 (0.0-7.0) % Baso % (Auto) 0.7 (0.0-1.5) % Neut # (Auto) 2.7 (1.4-5.7) K/uL Lymph # (Auto) 1.1 (0.6-2.4) K/uL Dickenson # (Auto) 0.5 (0.0-0.8) K/uL Eos # (Auto) 0.2 (0.0-0.7) K/uL Baso # (Auto) 0.0 (0.0-0.1) K/uL Nucleated RBC % 0.0 /100WBC Nucleated RBCs # 0 K/uL Sodium (136-145) mmol/L Potassium (3.5-5.1) mmol/L Chloride (98-107) mmol/L Carbon Dioxide (21.0-32.0) mmol/L BUN (7.0-18.0) mg/dL Creatinine (0.6-1.0) mg/dL Est Cr Clr Drug Dosing mL/min Estimated GFR (MDRD) ml/min Glucose (74-106) mg/dL Calcium (8.5-10.1) mg/dL Magnesium (1.8-2.4) mg/dL Total Bilirubin (0.2-1.0) mg/dL AST (15-37) IU/L ALT (14-63) IU/L Alkaline Phosphatase (46-116) U/L Creatine Kinase (26-308) U/L Troponin I < 0.050 < 0.050 (0.000-0.056) ng/mL Total Protein (6.4-8.2) g/dL Albumin (3.4-5.0) g/dL Globulin (2.6-4.0) g/dL Albumin/Globulin Ratio (0.9-1.6) TSH 3rd Generation (0.36-3.74) uIU/mL Urine Color Urine Appearance Urine pH (5.0-8.0) Ur Specific Counselor (1.001-1.035) Urine Protein (NEGATIVE) mg/dL Urine Glucose (UA) (NEGATIVE) mg/dL Urine Ketones (NEGATIVE) mg/dL Urine Occult Blood (NEGATIVE) Urine Nitrite (NEGATIVE) Urine Bilirubin (NEGATIVE) Urine Urobilinogen (<2.0) EU/dL Ur Leukocyte Esterase (NEGATIVE) Urine RBC (0-2/HPF) Urine WBC (0-5/HPF) Ur Epithelial Cells (NONE-FEW) Urine Bacteria (NEGATIVE) SARS-CoV-2 RNA (MELISSA) (NEGATIVE) 04/28/20 Range/Units 05:35 WBC (4.0-11.0) K/uL RBC (4.30-5.90) M/uL Hgb (12.0-16.0) g/dL Hct (36.0-46.0) % MCV (80.0-98.0) fL MCH (27.0-32.0) pg MCHC (31.0-37.0) g/dL RDW Std Deviation (28.0-62.0) fl RDW Coeff of Silver (11.0-15.0) % Plt Count (150-400) K/uL MPV (7.40-12.00) fL Neut % (Auto) (48.0-80.0) % Lymph % (Auto) (16.0-40.0) % Dickenson % (Auto) (0.0-15.0) % Eos % (Auto) (0.0-7.0) % Baso % (Auto) (0.0-1.5) % Neut # (Auto) (1.4-5.7) K/uL Lymph # (Auto) (0.6-2.4) K/uL Dickenson # (Auto) (0.0-0.8) K/uL Eos # (Auto) (0.0-0.7) K/uL Baso # (Auto) (0.0-0.1) K/uL Nucleated RBC % /100WBC Nucleated RBCs # K/uL Sodium 137 (136-145) mmol/L Potassium 3.6 (3.5-5.1) mmol/L Chloride 105 (98-107) mmol/L Carbon Dioxide 26.9 (21.0-32.0) mmol/L BUN 23 H (7.0-18.0) mg/dL Creatinine 1.3 H (0.6-1.0) mg/dL Est Cr Clr Drug Dosing 23.44 mL/min Estimated GFR (MDRD) 38.8 ml/min Glucose 104 (74-106) mg/dL Calcium 8.0 L (8.5-10.1) mg/dL Magnesium 2.1 (1.8-2.4) mg/dL Total Bilirubin 0.7 (0.2-1.0) mg/dL AST 21 (15-37) IU/L ALT 23 (14-63) IU/L Alkaline Phosphatase 73 (46-116) U/L Creatine Kinase (26-308) U/L Troponin I (0.000-0.056) ng/mL Total Protein 5.7 L (6.4-8.2) g/dL Albumin 3.0 L (3.4-5.0) g/dL Globulin 2.7 (2.6-4.0) g/dL Albumin/Globulin Ratio 1.1 (0.9-1.6) TSH 3rd Generation (0.36-3.74) uIU/mL Urine Color Urine Appearance Urine pH (5.0-8.0) Ur Specific Counselor (1.001-1.035) Urine Protein (NEGATIVE) mg/dL Urine Glucose (UA) (NEGATIVE) mg/dL Urine Ketones (NEGATIVE) mg/dL Urine Occult Blood (NEGATIVE) Urine Nitrite (NEGATIVE) Urine Bilirubin (NEGATIVE) Urine Urobilinogen (<2.0) EU/dL Ur Leukocyte Esterase (NEGATIVE) Urine RBC (0-2/HPF) Urine WBC (0-5/HPF) Ur Epithelial Cells (NONE-FEW) Urine Bacteria (NEGATIVE) SARS-CoV-2 RNA (MELISSA) (NEGATIVE) Med Orders - Current: Current Medications Acetaminophen (Tylenol) 650 mg PO Q4H PRN PRN Reason: Pain (Mild 1-3)/fever Aspirin (Halfprin) 81 mg PO DAILY [facility] Last Admin: 04/28/20 08:56 Dose: 81 mg Documented by: Atorvastatin Calcium (Lipitor) 20 mg PO BEDTIME [facility] Last Admin: 04/27/20 21:23 Dose: 20 mg Documented by: Hydrochlorothiazide (Hydrochlorothiazide) 25 mg PO DAILY [facility] Last Admin: 04/28/20 08:56 Dose: 25 mg Documented by: Lisinopril (Prinivil) 20 mg PO DAILY [facility] Last Admin: 04/28/20 09:14 Dose: 20 mg Documented by: Metoprolol Succinate (Toprol Xl) 25 mg PO BEDTIME [facility] Last Admin: 04/27/20 21:23 Dose: 25 mg Documented by: Ondansetron HCl (Zofran) 4 mg IVPUSH Q4H PRN PRN Reason: Nausea Sodium Chloride (Saline Flush) 2.5 ml FLUSH ASDIRECTED PRN PRN Reason: Keep Vein Open Last Admin: 04/27/20 13:50 Dose: 2.5 ml Documented by: Discontinued Medications Sodium Chloride (Normal Saline) 1,000 mls @ 100 mls/hr IV STAT ONE Stop: 04/27/20 20:23 Last Infusion: 04/27/20 10:44 Dose: 999 mls/hr Documented by: Potassium Chloride/Sodium Chloride (Normal Saline With 40 Meq Kcl) 1,000 mls @ 125 mls/hr IV ONETIME ONE Stop: 04/27/20 21:11 Last Admin: 04/27/20 13:51 Dose: 125 mls/hr Documented by: Magnesium Sulfate (Magnesium Sulfate In Water 2 Gm/50 Ml) 2 gm in 50 mls @ 50 mls/hr IV ONETIME ONE Stop: 04/27/20 14:12 Last Admin: 04/27/20 13:57 Dose: 50 mls/hr Documented by: Ondansetron HCl (Zofran) 4 mg IVPUSH ONETIME ONE Stop: 04/27/20 12:35 Last Admin: 04/27/20 12:43 Dose: 4 mg Documented by: Potassium Chloride (Klor-Con M20) 40 meq PO ONETIME ONE Stop: 04/28/20 09:01 Last Admin: 04/28/20 09:05 Dose: 40 meq Documented by: Sodium Chloride (Saline Flush) 10 ml FLUSH ASDIRECTED PRN PRN Reason: Keep Vein Open Last Admin: 04/27/20 10:45 Dose: 10 ml Documented by: Sodium Chloride (Saline Flush) 2.5 ml FLUSH ASDIRECTED PRN PRN Reason: Keep Vein Open Last Admin: 04/27/20 10:45 Dose: 2.5 ml Documented by: - Exam General: Reports: Alert, Oriented, Cooperative, No Acute Distress Lungs: Reports: Clear to Auscultation, Normal Respiratory Effort Cardiovascular: Reports: Regular Rate, Irregular Rhythm GI/Abdominal Exam: Normal Bowel Sounds, Soft, Non-Tender Back Exam: Reports: Normal Inspection, Full Range of Motion Extremities: Normal Inspection, Normal Range of Motion, Non-Tender Wound/Incisions: Reports: Healing Well Neurological: Reports: No New Focal Deficit Psy/Mental Status: Reports: Alert, Normal Affect, Normal Mood
[2020-04-28 10:24] VITALS: BP 126/90; PULSE 56
== END 2020-04-28 11:00 | disposition home or self-care (01) ==
LOC: MW.ED 10:14 → MW.MS 11:57
PROVIDERS: ADMIT Internal Medicine; ATTEND Internal Medicine
DX: R55 Syncope and collapse (principal); I48.91 Unspecified atrial fibrillation; R11.2 Nausea with vomiting, unspecified; R53.83 Other fatigue; T50.B95A Adverse effect of other viral vaccines, initial encounter; I25.2 Old myocardial infarction; I25.10 Atherosclerotic heart disease of native coronary artery without angina pectoris; K21.9 Gastro-esophageal reflux disease without esophagitis; I10 Essential (primary) hypertension; Z20.822 Contact with and (suspected) exposure to COVID-19; E87.6 Hypokalemia; E78.00 Pure hypercholesterolemia, unspecified; E83.42 Hypomagnesemia; Z79.82 Long term (current) use of aspirin; Z79.01 Long term (current) use of anticoagulants; Z95.5 Presence of coronary angioplasty implant and graft; W19.XXXA Unspecified fall, initial encounter; Z98.890 Other specified postprocedural states; Z79.899 Other long term (current) drug therapy
CPT/HCPCS: 36415; 70450; 71045; 80053; 81001; 82550; 83735; 84443; 84484; 85025; 93005; 96374; 96375; 99285; A9270; G0378; J2405; J3475; J3480; J7030; U0002; 93010; 99284

== ENCOUNTER 2021-02-20 22:51 | Emergency (ER) | payer MEDICARE, OTHER ==
[2021-02-20] MEDS ORDERED: Sodium Chloride 0.9% 10 ML Syringe FLUSH PRN (23:05)
[2021-02-20] MEDS ORDERED: Sodium Chloride 0.9% 2.5 ML Syringe FLUSH PRN (23:05)
[2021-02-20] MEDS ORDERED: traMADol 50 MG Tab PO ONE (23:06)
[2021-02-20 23:33] LABS: BLOOD UREA NITROGEN,BUN 32 mg/dL (7.0-18.0); CARBON DIOXIDE,CO2 32.2 mmol/L (21.0-32.0); CHLORIDE,CL 101 mmol/L (98-107); GLUCOSE RANDOM 109 mg/dL (74-106); POTASSIUM,K 3.4 mmol/L (3.5-5.1); SODIUM,NA 140 mmol/L (136-145)
--- NOTE | 2021-02-20 23:40 | CR ---
Indication: Chest and right-sided arm pain Technique: Chest 1 view Comparison: Chest x-ray 04/27/2020 Findings/Impression: Cardiovascular and mediastinum: Mild cardiomegaly with atherosclerotic calcification. Lungs and pleural space: No pleural effusion or pneumothorax. No focal consolidation. Calcifications overlie the right lower lung, likely soft tissue calcifications. Bones and soft tissues: Right upper quadrant surgical clips. Dictated by Rober Martinez MD @ 02/20/2021 11:38:47 PM (Electronically Signed)
--- NOTE | 2021-02-21 00:06 | EDM.PDOC ---
ED HPI GENERAL MEDICAL PROBLEM - General Chief Complaint: Chest Pain Stated Complaint: RT ARM PAIN, POSSIBLE HEART PROBLEMS Time Seen by Provider: 02/20/21 22:54 - History of Present Illness INITIAL COMMENTS - FREE TEXT/NARRATIVE: HISTORY AND PHYSICAL: History of present illness: This is a 85-year-old female with a history significant for coronary disease, congestive heart failure, hypertension, status post stents in the past, who reports that her prior heart disease symptoms were consistent with nausea and vomiting and not with pain to her right arm presents ER today complaining of right arm pain that started prior to arrival while she was at rest. Patient denies any other cardiac symptoms with it. Patient has any diaphoresis, nausea, shortness of breath, fevers, shakes, chills, URI symptoms, Covid symptoms. Patient denies any nausea, vomiting, diarrhea, dysuria, frequency, urgency. Patient reports pain increases with movement of her right upper extremity. Review of systems: As per history of present illness and below otherwise all systems reviewed and negative. Past medical history: As per history of present illness and as reviewed below otherwise noncontributory. Surgical history: As per history of present illness and as reviewed below otherwise noncontributory. Social history: No reported history of drug abuse. Family history: As per history of present illness and as reviewed below otherwise noncontributory. Physical exam: This patient was seen and evaluated during the 2019 SARS-CoV-2 novel coronavirus pandemic period. Community viral transmission is ongoing at time of this encounter and the emergency department is operating under pandemic response procedures. Constitutional: Patient is oriented to person, place, and time. Appears well- developed and well-nourished. No distress. HEENT: Moist mucous membranes Head: Normocephalic and atraumatic Eyes: Right eye exhibits no discharge. Left eye exhibits no discharge. No scleral icterus Neck: Normal range of motion. No tracheal deviation present. Cardiovascular: Normal rate and regular rhythm. Pulmonary: Effort normal, no respiratory distress. Abdominal: No distention Musculoskeletal: Normal range of motion Neurologic: Alert and oriented to person, place and time. Skin: [place], warm and dry. Psychiatric: Normal mood and affect. Behavior is normal. Judgment and thought content normal. Nursing note and vital signs have been reviewed Diagnostics: February 20, 2021 10:54 PM EKG: As interpreted by ER physician: Damien: Nonspecific ST-T wave abnormalities Normal axis No evidence of ST elevation IA Atrial fibrillation 72 bpm Chest Xray: Normal cardiac silhouette No infiltrates or effusions identified. No PTX No evidence of acute bony fracture. As interpreted by ER MD: [employer]: [] Assessment and plan: 85-year-old female who presents ER today complaining of right arm pain. Patient denies any recent trauma. Patient denies any other cardiac symptoms with it. Patient reports that this pain is not similar to her prior IA pain. Patient's ER evaluation today did not reveal any acute source of her pain. Patient's EKG, chest x-ray, labs are all within normal limits. Patient was given a dose of tramadol and can be safely discharged home for continued outpatient follow-up with her primary care physician. Definitive disposition and diagnosis as appropriate pending reevaluation and review of above. Right Arm Pain Score (Numeric/FACES): 6 - Related Data Allergies Allergy/AdvReac Type Severity Reaction Status Date / Time No Known Allergies Allergy Verified 02/20/21 23:13 Home Meds: Home Meds atorvaSTATin [Lipitor] 20 mg PO DAILY 04/23/19 [History] Acetaminophen [Tylenol] 650 mg PO Q4H PRN #10 tablet 04/24/19 [Rx] Aspirin [Aspirin EC] 81 mg PO DAILY 04/27/20 [History] hydroCHLOROthiazide [Hydrochlorothiazide] 25 mg PO DAILY 04/27/20 [History] lisinopriL [Lisinopril] 20 mg PO DAILY 04/27/20 [History] Apixaban [Eliquis] 5 mg PO BID #60 tablet 04/28/20 [Rx] Metoprolol Succinate [Toprol XL] 12.5 mg PO BEDTIME #30 tab.er 04/28/20 [Rx] Past Medical History HEENT History: Reports: Cataract, Impaired Vision Cardiovascular History: Reports: CAD, High Cholesterol, Hypertension, [place], Stents Other Cardiovascular History: Heart Attack Respiratory History: Reports: None Gastrointestinal History: Reports: GERD Genitourinary History: Reports: None Other Genitourinary History: kidney surgery done (5 years ago)(herlinda) [employer] History: Reports: Musculoskeletal History: Reports: None Neurological History: Reports: None Psychiatric History: Reports: None Endocrine/Metabolic History: Reports: None, Hypothyroidism Insulin Pump Model and Knock Out Hand: None Hematologic History: Reports: None Immunologic History: Reports: None Oncologic (Cancer) History: Reports: None Dermatologic History: Reports: None - Infectious Disease History Infectious Disease History: Reports: Chicken Pox, Measles, Mumps - Past Surgical History Head Surgeries/Procedures: Reports: None HEENT Surgical History: Reports: Cataract Surgery Cardiovascular Surgical History: Reports: Coronary Artery Stent Female Surgical History: Reports: Other (See Below) Other Female Surgeries/Procedures: Kidney Stent Social & Family History - Family History Family Medical History: No Pertinent Family History - Tobacco Use Tobacco Use Status *Q: Never Tobacco User - Caffeine Use Caffeine Use: Reports: Coffee, Tea - Recreational Drug Use Recreational Drug Use: No - Living Situation & Occupation Living situation: Reports: with Family Occupation: Retired ED ROS GENERAL - Review of Systems Review Of Systems: See Below ED EXAM, GENERAL - Physical Exam Exam: See Below Course - Vital Signs Last Recorded V/S: Last Vital Signs Temp 97.7 F 02/20/21 23:15 Pulse 72 02/20/21 23:15 Resp 16 02/20/21 23:15 BP 176/83 H 02/20/21 23:15 Pulse Ox 99 02/20/21 23:15 - Orders/Labs/Meds Orders: Active Orders 24 hr Category Date Time Status Sodium Chloride 0.9% [Saline Flush] Med 02/20/21 23:05 Active 10 ml FLUSH ASDIRECTED PRN Sodium Chloride 0.9% [Saline Flush] Med 02/20/21 23:05 Active 2.5 ml FLUSH ASDIRECTED PRN Saline Lock Insert [OM.PC] Stat Oth 02/20/21 23:05 Ordered Medication Orders Sodium Chloride (Sodium Chloride 0.9% 10 Ml Syringe) 10 ml FLUSH ASDIRECTED PRN PRN Reason: Keep Vein Open Last Admin: 02/20/21 23:18 Dose: 10 ml Documented by: LIDA Sodium Chloride (Sodium Chloride 0.9% 2.5 Ml Syringe) 2.5 ml FLUSH ASDIRECTED PRN PRN Reason: Keep Vein Open Last Admin: 02/20/21 23:19 Dose: 2.5 ml Documented by: LIDA Labs: Laboratory Tests 02/20/21 02/20/21 Range/Units 22:57 22:57 WBC 5.85 (4.0-11.0) K/uL RBC 5.04 (4.30-5.90) M/uL Hgb 14.9 (12.0-16.0) g/dL Hct 44.1 (36.0-46.0) % MCV 87.5 (80.0-98.0) fL MCH 29.6 (27.0-32.0) pg MCHC 33.8 (31.0-37.0) g/dL RDW Std Deviation 48.6 (28.0-62.0) fl RDW Coeff of Silver 15 (11.0-15.0) % Plt Count 175 (150-400) K/uL MPV 10.90 (7.40-12.00) fL Neut % (Auto) 45.5 L (48.0-80.0) % Lymph % (Auto) 38.1 (16.0-40.0) % [place] % (Auto) 9.9 (0.0-15.0) % Eos % (Auto) 6.0 (0.0-7.0) % Baso % (Auto) 0.5 (0.0-1.5) % Neut # (Auto) 2.7 (1.4-5.7) K/uL Lymph # (Auto) 2.2 (0.6-2.4) K/uL [place] # (Auto) 0.6 (0.0-0.8) K/uL Eos # (Auto) 0.4 (0.0-0.7) K/uL Baso # (Auto) 0.0 (0.0-0.1) K/uL Nucleated RBC % 0.0 /100WBC Nucleated RBCs # 0 K/uL Sodium 140 (136-145) mmol/L Potassium 3.4 L (3.5-5.1) mmol/L Chloride 101 (98-107) mmol/L Carbon Dioxide 32.2 H (21.0-32.0) mmol/L BUN 32 H (7.0-18.0) mg/dL Creatinine 1.3 H (0.6-1.0) mg/dL Est Cr Clr Drug Dosing TNP Estimated GFR (MDRD) 38.7 ml/min Glucose 109 H (74-106) mg/dL Calcium 9.4 (8.5-10.1) mg/dL Total Bilirubin 0.8 (0.2-1.0) mg/dL AST 31 (15-37) IU/L ALT 27 (14-63) IU/L Alkaline Phosphatase 134 H (46-116) U/L Troponin I < 0.050 (0.000-0.056) ng/mL Total Protein 7.9 (6.4-8.2) g/dL Albumin 4.0 (3.4-5.0) g/dL Globulin 3.9 (2.6-4.0) g/dL Albumin/Globulin Ratio 1.0 (0.9-1.6) Meds: Medications Generic Name Dose Route Start Last Admin Trade Name Freq PRN Reason Stop Dose Admin Sodium Chloride 10 ml 02/20/21 23:05 02/20/21 23:18 Sodium Chloride 0.9% 10 Ml Syringe FLUSH 10 ml ASDIRECTED PRN Administration Keep Vein Open Sodium Chloride 2.5 ml 02/20/21 23:05 02/20/21 23:19 Sodium Chloride 0.9% 2.5 Ml Syringe FLUSH 2.5 ml ASDIRECTED PRN Administration Keep Vein Open Discontinued Medications Generic Name Dose Route Start Last Admin Trade Name Freq PRN Reason Stop Dose Admin Tramadol HCl 50 mg 02/20/21 23:06 02/20/21 23:18 Tramadol 50 Mg Tab PO 02/20/21 23:07 50 mg ONETIME ONE Administration Departure - Departure Time of Disposition: 00:05 Disposition: Home, Self-Care 01 Condition: Good Clinical Impression: Right shoulder pain - Discharge Information Instructions: Shoulder Pain Referrals: PCP,None [Primary Care Provider] - Additional Instructions: You were seen and evaluated in ER today secondary to pain to your right upper extremity. Your blood tests, chest x-ray, EKG are all normal. You have been given a dose of tramadol here in the ER to assist you with your pain. At home you can take acetaminophen 650 mg every 6 hours for pain. Please avoid any nonsteroidal anti-inflammatory medications like ibuprofen since you are currently on blood thinners. Please make an appointment to follow-up with your doctor in the next 2 to 3 days for reevaluation. The following information is given to patients seen in the emergency department who are being discharged to home. This information is to outline your options for follow-up care. We provide all patients seen in our emergency department with a follow-up referral. The need for follow-up, as well as the timing and circumstances, are variable depending upon the specifics of your emergency department visit. If you don't have a primary care physician on staff, we will provide you with a referral. We always advise you to contact your personal physician following an emergency department visit to inform them of the circumstance of the visit and for follow-up with them and/or the need for any referrals to a consulting specialist. The emergency department will also refer you to a specialist when appropriate. This referral assures that you have the opportunity for follow-up care with a specialist. All of these measure are taken in an effort to provide you with optimal care, which includes your follow-up. Under all circumstances we always encourage you to contact your private physician who remains a resource for coordinating your care. When calling for follow-up care, please make the office aware that this follow-up is from your recent emergency room visit. If for any reason you are refused follow-up, please contact the [facility] Department at and asked to speak to the emergency department charge nurse. [facility] [address] [place] [address] [place] [address] Sepsis Event Note (ED) - Evaluation Sepsis Screening Result: No Definite Risk - Focused Exam Vital Signs: Vital Signs Temp Pulse Resp BP Pulse Ox 02/20/21 23:15 97.7 F 72 16 176/83 H 99 - My Orders Last 24 Hours: My Active Orders 02/20/21 23:05 Sodium Chloride 0.9% [Saline Flush] 10 ml FLUSH ASDIRECTED PRN Sodium Chloride 0.9% [Saline Flush] 2.5 ml FLUSH ASDIRECTED PRN Saline Lock Insert [OM.PC] Stat - Assessment/Plan Last 24 Hours: My Active Orders 02/20/21 23:05 Sodium Chloride 0.9% [Saline Flush] 10 ml FLUSH ASDIRECTED PRN Sodium Chloride 0.9% [Saline Flush] 2.5 ml FLUSH ASDIRECTED PRN Saline Lock Insert [OM.PC] Stat
[2021-02-21 00:23] VITALS: BP 145/74; PULSE 57
== END 2021-02-21 00:23 | disposition home or self-care (01) ==
LOC: MW.ED 22:51
DX: M25.511 Pain in right shoulder (principal); I25.10 Atherosclerotic heart disease of native coronary artery without angina pectoris; E78.00 Pure hypercholesterolemia, unspecified; I10 Essential (primary) hypertension; I25.2 Old myocardial infarction; Z79.82 Long term (current) use of aspirin; Z79.01 Long term (current) use of anticoagulants; Z79.899 Other long term (current) drug therapy
CPT/HCPCS: 36415; 71045; 80053; 84484; 85025; 93005; 99284; A9270

== ENCOUNTER 2022-01-17 17:39 | Emergency (ER) | payer MEDICARE, OTHER ==
[2022-01-17 18:54] LABS: BLOOD UREA NITROGEN,BUN 26 mg/dL (7.0-18.0); CARBON DIOXIDE,CO2 30.8 mmol/L (21.0-32.0); CHLORIDE,CL 96 mmol/L (98-107); ESTIMATED GFR 40 mL/min (>60); GLUCOSE RANDOM 132 mg/dL (74-106); POTASSIUM,K 3.5 mmol/L (3.5-5.1); SODIUM,NA 138 mmol/L (136-145)
[2022-01-17 21:59] VITALS: BP 114/57; PULSE 63
== END 2022-01-17 22:03 | disposition home or self-care (01) ==
LOC: MW.ED 17:39
DX: R55 Syncope and collapse (principal); S09.90XA Unspecified injury of head, initial encounter; T50.B95A Adverse effect of other viral vaccines, initial encounter; I48.20 Chronic atrial fibrillation, unspecified; I25.10 Atherosclerotic heart disease of native coronary artery without angina pectoris; E78.00 Pure hypercholesterolemia, unspecified; I10 Essential (primary) hypertension; I25.2 Old myocardial infarction; E03.9 Hypothyroidism, unspecified; Z79.82 Long term (current) use of aspirin; Z79.899 Other long term (current) drug therapy; Z79.01 Long term (current) use of anticoagulants; W18.30XA Fall on same level, unspecified, initial encounter; Y92.009 Unspecified place in unspecified non-institutional (private) residence as the place of occurrence of the external cause
CPT/HCPCS: 36415; 70450; 70450-26; 71045; 71045-26; 72125; 72125-26; 80053; 83735; 84484; 85025; 93005; 99285

== ENCOUNTER 2022-02-12 07:22 | Observation (INO) | payer MEDICARE, OTHER ==
[2022-02-12] MEDS ORDERED: Sodium Chloride 0.9% 10 ML Syringe FLUSH PRN ×2 (07:51→13:22)
[2022-02-12] MEDS ORDERED: Sodium Chloride 0.9% 2.5 ML Syringe FLUSH PRN ×2 (07:51→13:22)
[2022-02-12 08:43] LABS: BLOOD UREA NITROGEN,BUN 33 mg/dL (7.0-18.0); CARBON DIOXIDE,CO2 29.9 mmol/L (21.0-32.0); CHLORIDE,CL 104 mmol/L (98-107); GLUCOSE RANDOM 123 mg/dL (74-106); POTASSIUM,K 3.5 mmol/L (3.5-5.1); SODIUM,NA 141 mmol/L (136-145)
[2022-02-12 08:53] LABS: ESTIMATED GFR 44 mL/min (>60)
[2022-02-12] MEDS ORDERED: Lidocaine 1% 5 ML VIAL INJECT ONE (09:49)
[2022-02-12] MEDS ORDERED: Bacitracin Oint 1 GM U/D Packet TOP ONE (12:06)
[2022-02-12] MEDS ORDERED: Ondansetron 4 MG/2 ML SDV IVPUSH ONE (12:46)
[2022-02-12] MEDS ORDERED: Sodium Chloride 0.9% 1,000 ML IV ONE (12:46)
[2022-02-12] MEDS ORDERED: Acetaminophen 325 MG Tab PO PRN (13:22)
[2022-02-12] MEDS ORDERED: Ondansetron 4 MG/2 ML SDV IVPUSH PRN (13:22)
[2022-02-12 14:01] LABS: CORONAVIRUS COVID-19 NAA NEGATIVE (NEGATIVE); INFLUENZA A NAA NEGATIVE (NEGATIVE); INFLUENZA B NAA NEGATIVE (NEGATIVE); RESPIRATORY SYNCYTIAL VIR NAA NEGATIVE (NEGATIVE)
[2022-02-12] MEDS ORDERED: Sodium Chloride 0.9% 1,000 ML IV SCH (15:00)
[2022-02-12] MEDS ORDERED: Magnesium Sulfate/Water 2 GM in Premix Bag 1 BAG IV ONE (15:02)
[2022-02-12] MEDS ORDERED: Potassium Chloride 20 MEQ Tab.ER PO ONE (15:02)
[2022-02-12] MEDS ORDERED: atorvaSTATin 20 MG Tab PO SCH (21:00)
[2022-02-13 07:15] LABS: CARBON DIOXIDE,CO2 26.5 mmol/L (21.0-32.0); POTASSIUM,K 3.9 mmol/L (3.5-5.1)
[2022-02-13] MEDS ORDERED: Aspirin 81 MG Tab.EC PO SCH (09:00)
[2022-02-13] MEDS ORDERED: Apixaban 2.5 MG Tab PO SCH (09:00)
[2022-02-13] MEDS ORDERED: Lisinopril/Hydrochlorothiazide 10-12.5 MG Tab PO SCH (09:00)
[2022-02-13] MEDS ORDERED: amLODIPine 5 MG Tab PO SCH (09:00)
[2022-02-13 16:37] VITALS: BP 121/66; PULSE 72
== END 2022-02-13 12:58 | disposition home or self-care (01) ==
LOC: MW.ED 07:22 → MW.MS 12:39
PROVIDERS: ADMIT Internal Medicine; ATTEND Internal Medicine
DX: R55 Syncope and collapse (principal); R56.9 Unspecified convulsions; S01.81XA Laceration without foreign body of other part of head, initial encounter; I70.1 Atherosclerosis of renal artery; I48.11 Longstanding persistent atrial fibrillation; I25.10 Atherosclerotic heart disease of native coronary artery without angina pectoris; E78.5 Hyperlipidemia, unspecified; I10 Essential (primary) hypertension; I25.2 Old myocardial infarction; E78.00 Pure hypercholesterolemia, unspecified; K21.9 Gastro-esophageal reflux disease without esophagitis; E03.9 Hypothyroidism, unspecified; S22.039A Unspecified fracture of third thoracic vertebra, initial encounter for closed fracture; M51.84 Other intervertebral disc disorders, thoracic region; M47.812 Spondylosis without myelopathy or radiculopathy, cervical region; I08.2 Rheumatic disorders of both aortic and tricuspid valves; Z79.01 Long term (current) use of anticoagulants; Z79.899 Other long term (current) drug therapy; Z79.82 Long term (current) use of aspirin; Z20.822 Contact with and (suspected) exposure to COVID-19; Z98.890 Other specified postprocedural states; W19.XXXA Unspecified fall, initial encounter
CPT/HCPCS: 0241U; 36415; 70450; 71045; 72125; 72128; 80048; 80053; 80307; 81003; 82947; 83735; 84484; 85025; 85610; 93005; 93306; 97162; A9270; J2405; J3475; J3490; J7030

== ENCOUNTER 2022-04-22 12:53 | Emergency (ER) | payer MEDICARE, OTHER ==
[2022-04-22 14:01] LABS: CARBON DIOXIDE,CO2 27.2 mmol/L (21.0-32.0); POTASSIUM,K 3.7 mmol/L (3.5-5.1)
[2022-04-22] MEDS ORDERED: Metoclopramide 10 MG/2 ML SDV IVPUSH ONE (16:06)
[2022-04-22 17:49] VITALS: BP 106/56; PULSE 64
== END 2022-04-22 17:48 | disposition home or self-care (01) ==
LOC: MW.ED 12:53
DX: R55 Syncope and collapse (principal); I25.10 Atherosclerotic heart disease of native coronary artery without angina pectoris; I48.91 Unspecified atrial fibrillation; I10 Essential (primary) hypertension; I25.2 Old myocardial infarction; K21.9 Gastro-esophageal reflux disease without esophagitis; Z79.899 Other long term (current) drug therapy; Z79.82 Long term (current) use of aspirin; Z79.01 Long term (current) use of anticoagulants
CPT/HCPCS: 36415; 80048; 81003; 84484; 85025; 93005; 96374; 99284; J2765; 93010

== ENCOUNTER 2022-05-27 11:54 | Emergency (ER) | payer MEDICARE, OTHER ==
[2022-05-27] MEDS ORDERED: Sodium Chloride 0.9% 2.5 ML Syringe FLUSH PRN (12:09)
[2022-05-27] MEDS ORDERED: Sodium Chloride 0.9% 10 ML Syringe FLUSH PRN (12:09)
[2022-05-27 13:05] LABS: CARBON DIOXIDE,CO2 29.5 mmol/L (21.0-32.0); POTASSIUM,K 3.9 mmol/L (3.5-5.1)
[2022-05-27 13:39] LABS: INFLUENZA A NAA NEGATIVE (NEGATIVE); INFLUENZA B NAA NEGATIVE (NEGATIVE)
[2022-05-27 14:26] LABS: CORONAVIRUS COVID-19 NAA NEGATIVE (NEGATIVE)
[2022-05-27 14:51] VITALS: BP 131/72; PULSE 54
== END 2022-05-27 14:55 | disposition home or self-care (01) ==
LOC: MW.ED 11:54
DX: R07.9 Chest pain, unspecified (principal); I25.10 Atherosclerotic heart disease of native coronary artery without angina pectoris; E78.00 Pure hypercholesterolemia, unspecified; I25.2 Old myocardial infarction; I48.20 Chronic atrial fibrillation, unspecified; I10 Essential (primary) hypertension; Z20.822 Contact with and (suspected) exposure to COVID-19; Z95.5 Presence of coronary angioplasty implant and graft; Z79.01 Long term (current) use of anticoagulants; Z79.82 Long term (current) use of aspirin; Z79.899 Other long term (current) drug therapy
CPT/HCPCS: 0240U; 36415; 71045; 80053; 81001; 83735; 84484; 85025; 87086; 93005; 99285; J3490; 93010; 99284